=== PATIENT | male | born 1945 | race Caucasian/White ===

== ENCOUNTER 2016-06-01 00:48 | Emergency (ER) | payer MEDICARE, OTHER ==
[~2016-06-01] VITALS: Ht 175.3 cm; Wt 86.7 kg
[~2016-06-01 00:48] MED LIST: HYZA50TA2 PO; TOPR50TA PO
[2016-06-01] MEDS ORDERED: TOPR50TA PO (01:09)
[2016-06-01] MEDS ORDERED: ASPI325T PO (01:09)
[2016-06-01] MEDS ORDERED: HYZA50TA2 PO (01:09)
[2016-06-01 01:10] VITALS: BP 190/102; PULSE 73; RESP 16; TEMP 97.6; O2SAT 99
[2016-06-01 01:40] VITALS: BP 163/92
--- NOTE | 2016-06-01 01:42 | PD ---
HPI Chief Complaint: Abdominal Pain Time Seen by Provider: 01:29 Travel History International Travel<30 days: No Contact w/Intl Traveler<30days: No Traveled to known affect area: No History of Present Illness HPI Patient is a 70-year-old male that tonight around 15/08/14 felt bilateral muscle spasms in his abdomen. His muscles and the abdomen became hard as a rock but he had no nausea or vomiting. He had no abdominal distention. Gradually, after heating pads and relaxation his abdominal spasms quit. He had a similar episode a year ago which resolved spontaneously as well. He does not have a fever or abdominal pain now. PFSH Past Medical History Heart Rhythm Problems: No Cancer: Yes (PROSTATE) Cardiac Catheterization: No Cardiovascular Problems: Yes (HTN) High Cholesterol: No Congestive Heart Failure: No Diabetes: No Diminished Hearing: No Hypertension: Yes Kidney Stones: Yes Myocardial Infarction: No Radiation Therapy: Yes (FOR PROSTATE CANCER:40 TOTAL TREATMENTS: AGE 59 ) Tetanus Vaccination: > 5 Years Influenza Vaccination: No Past Surgical History Coronary Artery Bypass Graft: No Tonsillectomy: Yes Social History Alcohol Use: Yes ("MODERATELY") Tobacco Use: No (QUIT AGE 50) Substance Use: No Allergies-Medications (Allergen,Severity, Reaction): Coded Allergies: No Known Allergies (Verified , 06/01/16) Reported Meds & Prescriptions Reported Meds & Active Scripts Active Reported Aspirin 325 Mg Tab 325 Mg PO DAILY PRN Toprol XL (Metoprolol Succinate) 50 Mg Tab 50 Mg PO DAILY Hyzaar (Losartan-Hydrochlorothiazide) 50-12.5 Mg Tab 1 Tab PO DAILY Review of Systems Except as stated in HPI: all other systems reviewed are Neg Physical Exam Narrative GENERAL: Well-nourished, well-developed patient in no apparent distress. His vital signs show blood pressure 190/102 but otherwise normal. SKIN: Warm and dry. No skin rash is noted. HEAD: Normocephalic. EYES: No scleral icterus. No injection or drainage. NECK: Supple, trachea midline. No JVD or lymphadenopathy. CARDIOVASCULAR: Regular rate and rhythm without murmurs, gallops, or rubs. RESPIRATORY: Breath sounds equal bilaterally. No accessory muscle use. GASTROINTESTINAL: Abdomen soft, non-tender, nondistended. No guarding or rebound is present. No masses are felt in the abdomen. MUSCULOSKELETAL: No cyanosis, or edema. BACK: Nontender without obvious deformity. No CVA tenderness. Data Data Last Documented VS Vital Signs Date Time Temp Pulse Resp B/P Pulse Ox O2 Delivery O2 Flow Rate FiO2 06/01/16 01:40 163/92 06/01/16 01:10 97.6 73 16 99 [facility] Medical Decision Making Medical Screen Exam Complete: Yes Emergency Medical Condition: Yes Medical Record Reviewed: Yes Differential Diagnosis Small bowel obstructionunlikely, muscle spasm abdomen, black spider bite highly unlikely Narrative Course The patient had transient muscle spasm of his abdominal rectus muscles by history. He has no spasm now on his abdomen is soft and nontender. At this time I feel it is fruitless an expensive to order any testing at this time. His symptoms have completely resolved. Impression: Abdominal muscle spasmresolved Plan: I will prescribe the patient some Valium in case he has a recurrence of this muscle spasm. He should return to emergency department should this occur. Diagnosis Primary Impression: Spasm of abdominal muscles of left side Additional Instructions: Discussed this with your primary care physician. I prescribed some Valium in case this happens again to see if this helps the muscle spasm. Do not drink alcohol or drive on the Valium. Med/Other Pt SpecificInfo: Prescription(s) given Scripts Diazepam (Valium)5 Mg Tab5 Mg PO TID PRN (muscle spasm) #15 TAB Ref 0 Prov:Mao Sunshine MD 06/01/16 Disposition: 01 DISCHARGE HOME Condition: Stable Mao Sunshine MD Jun 01, 2016 01:42
[2016-06-01] MEDS ORDERED: DIAZ5 PO (01:54)
[2016-06-01] MEDS ORDERED: DIAZEPAM 5 MG TAB PO ONE (02:00)
== END 2016-06-01 02:05 | disposition home or self-care (01) ==
LOC: PHED 00:48
DX: M62.838 Other muscle spasm (principal); R10.9 Unspecified abdominal pain; I10 Essential (primary) hypertension; Z87.442 Personal history of urinary calculi
CPT/HCPCS: 99283

== ENCOUNTER 2017-04-05 06:03 | Inpatient (IN) | payer MEDICARE, OTHER ==
[2017-04-05] VITALS (8 sets, daily range): BP systolic 117–198; BP diastolic 60–105; PULSE 80–103; RESP 16–20; TEMP 96–98.6; O2SAT 95–100
[~2017-04-05] VITALS: Ht 175.3 cm; Wt 87.9 kg
[~2017-04-05 06:03] MED LIST changes: +ASPI-183 PO; +DIAZ5 PO
--- NOTE | 2017-04-05 06:42 | PD ---
HPI Chief Complaint: Abdominal Pain Time Seen by Provider: 06:23 Travel History International Travel<30 days: No Contact w/Intl Traveler<30days: No Traveled to known affect area: No History of Present Illness HPI The patient is a 71-year-old male that complains of bilateral abdominal pain, primarily in the periumbilical areas for one hour. He denies any fever, nausea , vomiting or diarrhea. He states he has been having hard bowel movements lately and had some bright red blood in his stool about an hour ago. The stool was otherwise normal. He states he had a similar episode a year ago which resolved, I saw him at that time. He denies any dysuria, frequency, urgency or flank pain. PFSH Past Medical History Heart Rhythm Problems: No Cancer: Yes (PROSTATE) Cardiac Catheterization: No Cardiovascular Problems: Yes (HTN) High Cholesterol: No Congestive Heart Failure: No Diabetes: No Diminished Hearing: No Hypertension: Yes Kidney Stones: Yes Myocardial Infarction: No Radiation Therapy: Yes (FOR PROSTATE CANCER:40 TOTAL TREATMENTS: AGE 59 ) Past Surgical History Coronary Artery Bypass Graft: No Tonsillectomy: Yes Social History Alcohol Use: Yes ("MODERATELY") Tobacco Use: No (QUIT AGE 50) Substance Use: No Allergies-Medications (Allergen,Severity, Reaction): Coded Allergies: No Known Allergies (Verified Adverse Reaction, Unknown, 04/05/17) Reported Meds & Prescriptions Reported Meds & Active Scripts Active Valium (Diazepam) 5 Mg Tab 5 Mg PO TID PRN Reported Aspirin 325 Mg Tab 325 Mg PO DAILY PRN Toprol XL (Metoprolol Succinate) 50 Mg Tab 50 Mg PO DAILY Hyzaar (Losartan-Hydrochlorothiazide) 50-12.5 Mg Tab 1 Tab PO DAILY Review of Systems Except as stated in HPI: all other systems reviewed are Neg Physical Exam Narrative GENERAL: The patient is alert, oriented 3 in moderate apparent distress with his bilateral periumbilical abdominal discomfort. His vital signs show pulse 103 but are otherwise normal. SKIN: Focused skin assessment warm/dry. HEAD: Atraumatic. Normocephalic. EYES: Pupils equal and round. No scleral icterus. No injection or drainage. ENT: No nasal bleeding or discharge. Mucous membranes pink and moist. NECK: Trachea midline. No JVD. CARDIOVASCULAR: Regular rate and rhythm. No murmur appreciated. RESPIRATORY: No accessory muscle use. Clear to auscultation. Breath sounds equal bilaterally. GASTROINTESTINAL: Abdomen soft, with tenderness to direct palpation bilaterally next to the umbilicus, minimally distended. Hepatic and splenic margins not palpable. No guarding or rebound is present. MUSCULOSKELETAL: No obvious deformities. No clubbing. No cyanosis. No edema. NEUROLOGICAL: Awake and alert. No obvious cranial nerve deficits. Motor grossly within normal limits. Normal speech. PSYCHIATRIC: Appropriate mood and affect; insight and judgment normal. RECTAL EXAM: No masses or tenderness, stool is brown and trace guaiac positive. No impactions are noted. Data Data Last Documented VS Vital Signs Date Time Temp Pulse Resp B/P (MAP) Pulse Ox O2 Delivery O2 Flow Rate FiO2 04/05/17 06:05 97.7 103 18 117/60 (79) 98 Orders Orders Complete Blood Count With Diff (04/05/17 06:43) Comprehensive Metabolic Panel (04/05/17 06:43) Lipase (04/05/17 06:43) Urinalysis - C+S If Indicated (04/05/17 06:43) Ct Abd/Pel W Iv Contrast(Rout) (04/05/17 06:43) Iv Access Insert/Monitor (04/05/17 06:43) Ecg Monitoring (04/05/17 06:43) Oximetry (04/05/17 06:43) Sodium Chloride 0.9% Flush (Ns Flush) (04/05/17 06:45) Sodium Chlor 0.9% 1000 Ml Inj (Ns 1000 M (04/05/17 06:45) Labs Laboratory Tests Test 04/05/17 06:49 04/05/17 06:55 White Blood Count 10.8 TH/MM3 Red Blood Count 5.59 MIL/MM3 Hemoglobin 15.7 GM/DL Hematocrit 47.0 % Mean Corpuscular Volume 84.2 FL Mean Corpuscular Hemoglobin 28.1 PG Mean Corpuscular Hemoglobin Concent 33.4 % Red Cell Distribution Width 13.6 % Platelet Count 182 TH/MM3 Mean Platelet Volume 6.8 FL Neutrophils (%) (Auto) 68.4 % Lymphocytes (%) (Auto) 24.1 % Monocytes (%) (Auto) 5.4 % Eosinophils (%) (Auto) 1.7 % Basophils (%) (Auto) 0.4 % Neutrophils # (Auto) 7.4 TH/MM3 Lymphocytes # (Auto) 2.6 TH/MM3 Monocytes # (Auto) 0.6 TH/MM3 Eosinophils # (Auto) 0.2 TH/MM3 Basophils # (Auto) 0.0 TH/MM3 CBC Comment DIFF FINAL Differential Comment MDM Medical Decision Making Medical Screen Exam Complete: Yes Emergency Medical Condition: Yes Medical Record Reviewed: Yes Differential Diagnosis Muscle spasms, small bowel obstruction-unlikely, abdominal pain unknown etiology , colitis, gastritis, electrolyte disorder Narrative Course It is now 0711 and the patient is transferred to Dr. Smith. Mao Sunshine MD Apr 05, 2017 06:42
[2017-04-05] MEDS ORDERED: SODIUM CHLOR 0.9% 1000 ML INJ 1,000 ML IV SCH (06:45)
[2017-04-05 07:04] LABS: AUTOMATED NEUTROPHIL # 7.4 TH/MM3 (1.8-7.7); BASOPHIL % 0.4 % (0.0-2.0); EOSINOPHIL # 0.2 TH/MM3 (0-0.4); EOSINOPHIL % 1.7 % (0.0-4.0); HEMO FLAGS DIFF FINAL; LYMPH % 24.1 % (9.0-44.0); LYMPHOCYTE # 2.6 TH/MM3 (1.0-4.8); MEAN CELL VOLUME 84.2 FL (80.0-100.0); MEAN CORPUSCULAR HEMOGLOBIN 28.1 PG (27.0-34.0); MEAN CORPUSCULAR HGB CONC 33.4 % (32.0-36.0); MONO % 5.4 % (0.0-8.0); NEUT % 68.4 % (16.0-70.0); PLATELET COUNT 182 TH/MM3 (150-450); RED BLOOD COUNT 5.59 MIL/MM3 (4.50-5.90); RED CELL DISTRIBUTION WIDTH 13.6 % (11.6-17.2); WHITE BLOOD COUNT 10.8 TH/MM3 (4.0-11.0)
[2017-04-05] MEDS: SODIUM CHLORIDE 0.9% FLUSH 10 ML FLUSH IV FLUSH PRN ×3 (07:10→22:04)
[2017-04-05 07:12] LABS: CHLORIDE 104 MEQ/L (98-107); POTASSIUM 3.2 MEQ/L (3.5-5.1); SODIUM (NA) 140 MEQ/L (136-145)
[2017-04-05 07:16] LABS: ANION GAP 7 MEQ/L (5-15); BICARBONATE 29.1 MEQ/L (21.0-32.0); BLOOD UREA NITROGEN 19 MG/DL (7-18)
[2017-04-05 07:18] LABS: ALT (GPT) 47 U/L (12-78); AST (GOT) 60 U/L (15-37)
[2017-04-05 07:19] LABS: BLOOD, URINE SMALL (NEG); GLUCOSE,URINE NEG (NEG); KETONE, URINE NEG (NEG); NITRITE,URINE NEG (NEG)
[2017-04-05 07:19] LABS: GLOMERULAR FILTRATION RATE 54 ML/MIN (>89)
[2017-04-05 07:20] LABS: TOTAL BILIRUBIN ADULT 2.5 MG/DL (0.2-1.0)
[2017-04-05 07:21] LABS: ALKALINE PHOSPHATASE 69 U/L (45-117)
[2017-04-05 07:25] LABS: METHOD OF COLLECTION CLEAN CATCH; URINE COLOR YELLOW (YELLW/STRAW); WBC, URINE 0-2 /hpf (0-5)
[2017-04-05 07:26] LABS: COMMENT (UR) CULT NOT INDICATED; CULTURE IF INDICATED CULT NOT INDICATED; SQUAMOUS EPITHELIAL CELL URINE 0-5 /hpf (0-5)
[2017-04-05] MEDS ORDERED: IOHEXOL 350 MG/ML 10 ML VIAL (for RAD DIAG) IVCONTRAST ONE (07:45)
--- NOTE | 2017-04-05 08:08 | RADRPT ---
EXAM DATE/TIME: 04/05/2017 07:40 [facility] COMPARISON: No previous studies available for comparison. INDICATIONS : Periumbilical pain. Constipation. IV CONTRAST: 85 cc Omnipaque 350 (iohexol) IV ORAL CONTRAST: No oral contrast ingested. RADIATION DOSE: 14.94 CTDIvol (mGy) MEDICAL HISTORY : Carcinoma, prostate. Renal calculi. Hypertension. SURGICAL HISTORY : None. ENCOUNTER: Initial ACUITY: 1 day PAIN SCALE: 6/10 LOCATION: Periumbilical. TECHNIQUE: Volumetric scanning of the abdomen and pelvis was performed. Using automated exposure control and ad justment of the mA and/or kV according to patient size, radiation dose was kept as low as reasonably achievable to obtain optimal diagnostic quality images. DICOM format image data is available electro nically for review and comparison. FINDINGS: LOWER LUNGS: There is minimal atelectasis at the lung bases. LIVER: Homogeneous density without lesion. There is no dilation of the biliary tree. No definite gallstone s. There is mild gallbladder wall edema. SPLEEN: Mildly enlarged measuring 14.4 cm in length. There is a 2.2 cm enhancing lesion within the central sp karla. PANCREAS: There are peripancreatic inflammatory changes with mild fluid/edema. Pancreas demonstrates normal enh ancement without necrosis. No duct dilatation is present. No solid mass is seen. No organized peripan creatic fluid collections or pancreatitis associated complications are identified. 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 There is a focal scar at the left upper pole where there is a focal calcification measuring 12 mm associated with a cystic lesion measuring approximately 18 m m. This could represent a dilated calyx or cyst. In the distal left ureter a few centimeters proximal to the ureterovesical junction there is a 7 x 5 mm ovoid stone. Directly proximal to the UVJ is a 2 mm stone. ADRENAL GLANDS: Within normal limits. VASCULAR: There is no aortic aneurysm. There is moderate severity atherosclerotic disease. Splenic vein is clark nt. BOWEL/MESENTERY: The stomach, small bowel, and colon demonstrate no acute abnormality. There is no free intraperitone al air. There is mild sigmoid diverticulosis. ABDOMINAL WALL: Within normal limits. RETROPERITONEUM: There is no lymphadenopathy. BLADDER: No wall thickening or mass. REPRODUCTIVE: Fiducial markers are present within the prostate gland. INGUINAL: There is no lymphadenopathy. There are bilateral fat containing angle hernias. MUSCULOSKELETAL: There are degenerative changes of the lumbar spine. No acute osseous abnormality is identified. CONCLUSION: 1. Peripancreatic inflammation diagnostic of acute pancreatitis. There is no pancreatic necrosis or a cute pancreatitis associated complications. Additionally, no specific cause identified. There is mild gallbladder wall edema but no definite gallstones are present and there is no bile duct dilatation. 2. 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 The smaller stone measures 2 mm and the larger measures 7 x 5 mm. 3. Mild splenomegaly with enhancing lesion measuring 2.2 cm.. This lesion has nonspecific imaging fea tures. Suggest correlating with prior imaging studies that could confirm longer-term stability. If no ne are available consider elective outpatient MRI with and without intravenous contrast to potentiall y offer additional characterization. Aly Whiting MD on April 05, 2017 at 7:51 Board Certified Radiologist. This report was verified electronically.
[2017-04-05] MEDS ORDERED: SODIUM CHLOR 0.45% 1000 ML INJ 1,000 ML IV SCH (09:18)
--- NOTE | 2017-04-05 09:20 | PD ---
Physical Exam Date Seen by Provider: Apr 05, 2017 Time Seen by Provider: 07:00 Narrative Patient initially seen by Dr. Sunshine, signed out to me at 7 AM, awaiting workup. Here with periumbilical abdominal pains which is tender to palpation. Laboratory Tests Test 04/05/17 06:49 04/05/17 06:55 Urine Protein 30 mg/dL (NEG-TRACE) Urine Occult Blood SMALL (NEG) Urine RBC 4-9 /hpf (0-3) Mean Platelet Volume 6.8 FL (7.0-11.0) Blood Urea Nitrogen 19 MG/DL (7-18) Random Glucose 176 MG/DL (74-106) Aspartate Amino Transf (AST/SGOT) 60 U/L (15-37) Total Bilirubin 2.5 MG/DL (0.2-1.0) Potassium Level 3.2 MEQ/L (3.5-5.1) Estimat Glomerular Filtration Rate 54 ML/MIN (>89) Lipase GREATER THAN 90001 U/L Last 24 hours Impressions Abdomen/Pelvis CT 04/05/17 0643 Signed Impressions: Service Date/Time: Wednesday, April 05, 2017 07:40 - CONCLUSION: 1. Peripancreatic inflammation diagnostic of acute pancreatitis. There is no pancreatic necrosis or acute pancreatitis associated complications. Additionally, no specific cause identified. There is mild gallbladder wall edema but no definite gallstones are present and there is no bile duct dilatation. 2. 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 The smaller stone measures 2 mm and the larger measures 7 x 5 mm. 3. Mild splenomegaly with enhancing lesion measuring 2.2 cm.. This lesion has nonspecific imaging features. Suggest correlating with prior imaging studies that could confirm longer-term stability. If none are available consider elective outpatient MRI with and without intravenous contrast to potentially offer additional characterization. Aly Whiting MD Lab work shows significant lipase elevation indicative of pancreatitis. CAT scan is showing signs of pancreatitis as well as mild gallbladder wall edema but no signs of gallstones or obvious ductal dilatation. At this point, patient was reevaluated and he appears fairly comfortable. He has had no nausea or vomiting. He is quite tender in the epigastrium and left upper quadrant as well. He is received IV fluids and pain medications in the ER and my plan would be to admit him for further treatment. Case was discussed with Dr. Palm for admission. Data Data Last Documented VS Vital Signs Date Time Temp Pulse Resp B/P (MAP) Pulse Ox O2 Delivery O2 Flow Rate FiO2 04/05/17 08:15 87 16 160/78 (105) 98 Room Air 04/05/17 06:05 97.7 Orders Orders Complete Blood Count With Diff (04/05/17 06:43) Comprehensive Metabolic Panel (04/05/17 06:43) Lipase (04/05/17 06:43) Urinalysis - C+S If Indicated (04/05/17 06:43) Ct Abd/Pel W Iv Contrast(Rout) (04/05/17 06:43) Iv Access Insert/Monitor (04/05/17 06:43) Ecg Monitoring (04/05/17 06:43) Oximetry (04/05/17 06:43) Sodium Chloride 0.9% Flush (Ns Flush) (04/05/17 06:45) Sodium Chlor 0.9% 1000 Ml Inj (Ns 1000 M (04/05/17 06:45) Iohexol 350 Inj (Omnipaque 350 Inj) (04/05/17 07:45) Admit Order (Ed Use Only) (04/05/17 09:17) Labs Laboratory Tests Test 04/05/17 06:49 04/05/17 06:55 Urine Collection Type CLEAN CATCH Urine Color YELLOW Urine Turbidity CLEAR Urine pH 6.0 Urine Specific Allen 1.012 Urine Protein 30 mg/dL Urine Glucose (UA) NEG mg/dL Urine Ketones NEG mg/dL Urine Occult Blood SMALL Urine Nitrite NEG Urine Bilirubin NEG Urine Leukocyte Esterase NEG Urine RBC 4-9 /hpf Urine WBC 0-2 /hpf Urine Squamous Epithelial Cells 0-5 /hpf Microscopic Urinalysis Comment CULT NOT INDICATED Urine Collection Time 06:49 White Blood Count 10.8 TH/MM3 Red Blood Count 5.59 MIL/MM3 Hemoglobin 15.7 GM/DL Hematocrit 47.0 % Mean Corpuscular Volume 84.2 FL Mean Corpuscular Hemoglobin 28.1 PG Mean Corpuscular Hemoglobin Concent 33.4 % Red Cell Distribution Width 13.6 % Platelet Count 182 TH/MM3 Mean Platelet Volume 6.8 FL Neutrophils (%) (Auto) 68.4 % Lymphocytes (%) (Auto) 24.1 % Monocytes (%) (Auto) 5.4 % Eosinophils (%) (Auto) 1.7 % Basophils (%) (Auto) 0.4 % Neutrophils # (Auto) 7.4 TH/MM3 Lymphocytes # (Auto) 2.6 TH/MM3 Monocytes # (Auto) 0.6 TH/MM3 Eosinophils # (Auto) 0.2 TH/MM3 Basophils # (Auto) 0.0 TH/MM3 CBC Comment DIFF FINAL Differential Comment Blood Urea Nitrogen 19 MG/DL Creatinine 1.30 MG/DL Random Glucose 176 MG/DL Total Protein 7.0 GM/DL Albumin 3.7 GM/DL Calcium Level 8.8 MG/DL Alkaline Phosphatase 69 U/L Aspartate Amino Transf (AST/SGOT) 60 U/L Alanine Aminotransferase (ALT/SGPT) 47 U/L Total Bilirubin 2.5 MG/DL Sodium Level 140 MEQ/L Potassium Level 3.2 MEQ/L Chloride Level 104 MEQ/L Carbon Dioxide Level 29.1 MEQ/L Anion Gap 7 MEQ/L Estimat Glomerular Filtration Rate 54 ML/MIN Lipase GREATER THAN 63797 U/L [facility] Medical Record Reviewed: Yes Supervised Visit with LEW: No Diagnosis Primary Impression: Acute pancreatitis Admitting Information Admitting Physician Requests: Admit Vanna Phelan MD Apr 05, 2017 09:20
[2017-04-05] MEDS ORDERED: SODIUM CHLOR 0.9% 1000 ML INJ 1,000 ML IV ONE (09:30)
[2017-04-05] MEDS ORDERED: GLYCERIN ADULT 2 GM SUPP RECTAL ONE (11:00)
--- NOTE | 2017-04-05 11:03 | HHI.HP ---
HPI Service [facility] Primary Care Physician Anderson Stout M.D. Admission Diagnosis acute pancreatitis Diagnoses: Chief Complaint: Abdominal pain Travel History International Travel<30 Days: No Contact w/Intl Traveler <30 Da: No Traveled to Known Affected Are: No History of Present Illness 71-year-old white male being admitted for severe pancreatitis. Patient was in his usual state of health until early this morning around 5 AM when he woke up in abdominal pain. The pain was cramping in nature and at worst was an 8/10 in intensity and was diffusely over his abdomen. He felt that this was possibly related to needing to void, but after having a bowel movement pain did not resolve and decided to proceed to the emergency room. He denies any nausea vomiting or diarrhea. Denies any alleviating or worsening factors of the abdominal pain. No fevers or chills. He reports having some blood noted on wiping but no bright red blood seen in the toilet on his last 2 bowel movements prior to admission; he does report that his last 2 bowel movements had relatively hard stool in comparison to normal stool that he usually has otherwise. Says he had occult stool cards done just about 2 months ago which were negative. Review of Systems Except as stated in HPI: all other systems reviewed are Neg Past Family Social History Past Medical History Prostate cancer - underwent 41 rounds of radiation treatment with no surgical intervention Hypertension Allergies: Coded Allergies: No Known Allergies (Verified Adverse Reaction, Unknown, 04/05/17) Family History Father with lung cancer, brother with lung cancer Social History Ex-smoker, has not smoked for over 20 years Says he drinks about 1-2 beers about 1 day a week when he plays pool Physical Exam Vital Signs Vital Signs Date Time Temp Pulse Resp B/P (MAP) Pulse Ox O2 Delivery O2 Flow Rate FiO2 04/05/17 10:02 83 16 158/80 (106) 04/05/17 10:01 04/05/17 09:15 80 16 166/77 (106) 04/05/17 08:15 87 16 160/78 (105) 98 Room Air 11/8/17 08:00 16 04/05/17 07:23 16 98 Room Air 04/05/17 06:05 97.7 103 18 117/60 (79) 98 Physical Exam VS: Afebrile GENERAL: Middle-aged white male, well-nourished, no acute distress SKIN: Warm and dry. EYES: No scleral icterus. No injection or drainage. ENT: No nasal bleeding or discharge. Mucous membranes pink and moist. CARDIOVASCULAR: Regular rate and rhythm. no murmurs RESPIRATORY: No accessory muscle use. Clear to auscultation. Breath sounds equal bilaterally. GASTROINTESTINAL: Abdomen soft, mild diffuse tenderness to palpation, no focal masses palpated, no rebound, no guarding Extremities: No clubbing, cyanosis, or edema. No obvious deformities. MUSCULOSKELETAL: Extremities without clubbing, cyanosis, or edema. No obvious deformities. grossly intact ROM with 5/5 strength in upper and lower extremities proximally NEUROLOGICAL: Awake and alert. No obvious cranial nerve deficits. No facial droop nor slurred speech noted. PSYCHIATRIC: Appropriate mood and affect; insight and judgment normal. Laboratory Laboratory Tests Test 04/05/17 06:49 04/05/17 06:55 Urine Collection Type CLEAN CATCH Urine Color YELLOW Urine Turbidity CLEAR Urine pH 6.0 Urine Specific [place] 1.012 Urine Protein 30 Urine Glucose (UA) NEG Urine Ketones NEG Urine Occult Blood SMALL Urine Nitrite NEG Urine Bilirubin NEG Urine Leukocyte Esterase NEG Urine RBC 4-9 Urine WBC 0-2 Urine Squamous Epithelial Cells 0-5 Microscopic Urinalysis Comment CULT NOT INDICATED Urine Collection Time 06:49 White Blood Count 10.8 Red Blood Count 5.59 Hemoglobin 15.7 Hematocrit 47.0 Mean Corpuscular Volume 84.2 Mean Corpuscular Hemoglobin 28.1 Mean Corpuscular Hemoglobin Concent 33.4 Red Cell Distribution Width 13.6 Platelet Count 182 Mean Platelet Volume 6.8 Neutrophils (%) (Auto) 68.4 Lymphocytes (%) (Auto) 24.1 Monocytes (%) (Auto) 5.4 Eosinophils (%) (Auto) 1.7 Basophils (%) (Auto) 0.4 Neutrophils # (Auto) 7.4 Lymphocytes # (Auto) 2.6 Monocytes # (Auto) 0.6 Eosinophils # (Auto) 0.2 Basophils # (Auto) 0.0 CBC Comment DIFF FINAL Differential Comment Blood Urea Nitrogen 19 Creatinine 1.30 Random Glucose 176 Total Protein 7.0 Albumin 3.7 Calcium Level 8.8 Alkaline Phosphatase 69 Aspartate Amino Transf (AST/SGOT) 60 Alanine Aminotransferase (ALT/SGPT) 47 Total Bilirubin 2.5 Sodium Level 140 Potassium Level 3.2 Chloride Level 104 Carbon Dioxide Level 29.1 Anion Gap 7 Estimat Glomerular Filtration Rate 54 Lipase GREATER THAN 08860 Result Diagram: 04/05/1765404/05/17654 Caprini VTE Risk Assessment Caprini VTE Risk Assessment: Mod/High Risk (score >= 2) Caprini Risk Assessment Model Point Value = 1 Point Value = 2 Point Value = 3 Point Value = 5 Age 41-60 Minor surgery BMI > 25 kg/m2 Swollen legs Varicose veins or History of unexplained or recurrent spontaneous Oral contraceptives or hormone replacement Sepsis (< 1 month) Serious lung disease, including pneumonia (< 1 month) Abnormal pulmonary function Acute myocardial infarction Congestive heart failure (< 1 month) History of inflammatory bowel disease Medical patient at bed rest Age 61-74 Arthroscopic surgery Major open surgery (> 45 min) Laparoscopic surgery (> 45 min) Malignancy Confined to bed (> 72 hours) Immobilizing plaster cast Central venous access Age >= 75 History of VTE Family history of VTE Factor V Leiden Prothrombin [id number] Lupus anticoagulant Anticardiolipin antibodies Elevated serum homocysteine Heparin-induced thrombocytopenia Other congenital or acquired thrombophilia Stroke (< 1 month) Elective arthroplasty Hip, pelvis, or leg fracture Acute spinal cord injury (< 1 month) Prophylaxis Regimen Total Risk Factor Score Risk Level Prophylaxis Regimen 0-1 Low Early ambulation 2 Moderate Order ONE of the following: *Sequential Compression Device (SCD) *Heparin 5000 units SQ BID 3-4 Higher Order ONE of the following medications: *Heparin 5000 units SQ TID *Enoxaparin/Lovenox 40 mg SQ daily (WT < 150 kg, CrCl > 30 mL/min) *Enoxaparin/Lovenox 30 mg SQ daily (WT < 150 kg, CrCl > 10-29 mL/min) *Enoxaparin/Lovenox 30 mg SQ BID (WT < 150 kg, CrCl > 30 mL/min) AND/OR *Sequential Compression Device (SCD) 5 or more Highest Order ONE of the following medications: *Heparin 5000 units SQ TID (Preferred with Epidurals) *Enoxaparin/Lovenox 40 mg SQ daily (WT < 150 kg, CrCl > 30 mL/min) *Enoxaparin/Lovenox 30 mg SQ daily (WT < 150 kg, CrCl > 10-29 mL/min) *Enoxaparin/Lovenox 30 mg SQ BID (WT < 150 kg, CrCl > 30 mL/min) AND *Sequential Compression Device (SCD) Assessment and Plan Assessment and Plan Abdominal pain - Likely secondary to pancreatitis Severe pancreatitis - Lipase at least at 30,000, pancreatitis evident on CT scan - - Given that the patient does not look as sick as his labs with a very high lipase and elevated bilirubin, I suspect he might have choledocholithiasis - Ordering gallbladder ultrasound with focus on biliary tree - Giving another normal saline bolus, followed by aggressive hydration - Repeat CMP in a.m. as well as lipase - Clear liquids as tolerated - Pain medications as needed Possible choledocholithiasis - f/u US results as above constipation - I independent only reviewed the abdominal CT film and I see mild to moderate constipation. Starting stool softeners and giving and glycerin suppository. - I suspect his blood on wiping is more so from hard stool and not from a jelena GI bleed, we'll monitor hemoglobin but I do not feel that his case warrants absolute contraindication for pharmacological anti-coagulation HTN - continue home meds DVT prophylaxis lovenox Physician Certification 2 Midnight Certification Type: Admission for Inpatient Services Order for Inpatient Services The services are ordered in accordance with Medicare regulations or non- Medicare payer requirements, as applicable. In the case of services not specified as inpatient-only, they are appropriately provided as inpatient services in accordance with the 2-midnight benchmark. Estimated LOS (days): 2 2 days is the estimated time the patient will need to remain in the hospital, assuming treatment plan goals are met and no additional complications. Post-Hospital Plan: Home Elder Palm MD Apr 05, 2017 11:03
--- NOTE | 2017-04-05 11:13 | RADRPT ---
EXAM DATE/TIME: 04/05/2017 10:08 [facility] COMPARISON: CT ABDOMEN & PELVIS W CONTRAST, April 05, 2017, 7:40. INDICATIONS : Right upper quadrant pain. MEDICAL HISTORY : Hypertension. Renal calculi. Carcinoma, prostate. SURGICAL HISTORY : Tonsillectomy. Radiation therapy. ENCOUNTER: Initial ACUITY: 1 day PAIN SCORE: 6/10 LOCATION: Right upper quadrant MEASUREMENTS: LIVER: 14.1 cm length COMMON DUCT: 7 mm RIGHT KIDNEY: 8.9 x 3.9 x 4.9 cm FINDINGS: LIVER: The left lobe of liver is incompletely imaged. The left portions of the liver are unremarkable withou t evidence for intrahepatic ductal dilatation. COMMON DUCT: No intraluminal mass or stone visualized. GALLBLADDER: Gallbladder is mildly distended. There is gallbladder thickening with trace pericholecystic fluid. Th ere is a 4 x 4 x 6 mm adherent echogenic structure near the gallbladder neck. PANCREAS: Obscured by overlying bowel gas. 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 CONCLUSION: 1. Mild gallbladder wall thickening and trace pericholecystic fluid with small nonobstructing 6 mm ad herent echogenic structure near the gallbladder neck likely reflecting adherent stone or polyp. These findings are nonspecific in this patient with acute pancreatitis although acute cholecystitis cannot be excluded particularly given the pericholecystic fluid. Consider HIDA scan to evaluate for cystic duct patency. 1. Naveed Cordoba MD on April 05, 2017 at 10:45 Board Certified Radiologist. This report was verified electronically.
[2017-04-05] MEDS ORDERED: LISI20TA3 PO (11:44)
[2017-04-05] MEDS ORDERED: NON-FORMULARY DRUG (Lisinopril-Hctz 1 TAB) PO SCH (12:00)
[2017-04-05] MEDS: POLYETHYLENE GLYCOL 17 GM PKG PO SCH (12:10)
[2017-04-05] MEDS: METOPROLOL SUCCINATE 50 MG EXTENDED RELEASE TAB PO SCH (12:11)
[2017-04-05] MEDS: ACETAMINOPHEN/HYDROcodone 325 MG/5 MG TAB PO PRN (12:12)
[2017-04-05] MEDS: LISINOPRIL 20 MG TAB PO SCH (12:22)
[2017-04-05] MEDS: HYDROCHLOROTHIAZIDE 25 MG TAB PO SCH (12:22)
[2017-04-05] MEDS: ENOXAPARIN SODIUM 30 MG/0.3 ML SYRINGE SQ SCH (12:23)
[2017-04-05] MEDS: SODIUM CHLOR 0.9% 1000 ML INJ 1,000 ML IV SCH ×2 (12:30→19:47)
[2017-04-05] MEDS: MORPHINE SULFATE 4 MG/ML INJ IV PUSH PRN ×3 (15:42→22:04)
[2017-04-05 16:53] LABS: TOTAL BILIRUBIN ADULT 2.5 MG/DL (0.2-1.0)
[2017-04-05] MEDS: ENALAPRILAT 1.25 MG/ML VIAL IV PUSH PRN (17:47)
--- NOTE | 2017-04-05 17:48 | PD.CONS ---
cc: Jaron Dawson MD [facility] Service General Surgery Consult Requested By Dr. Palm Reason for Consult Evaluate for possible choledocholithiasis Primary Care Physician Anderson Stout M.D. History of Present Illness This is a 71-year-old male with a past medical history of prostate cancer and hypertension. The patient awoke this morning at 5 AM with sudden acute abdominal pain. His last meal was quesadillas last night with his who also had the same thing. The patient denies nausea, vomiting or diarrhea. He does report that he has been constipated. He had a large bowel movement this morning which did have some jelena red blood in it. A CT abdomen and pelvis was obtained which showed some gallbladder wall thickening and concern for cholelithiasis. An ultrasound of the gallbladder was obtained which showed some gallstones and mild gallbladder wall thickening with trace pericholecystic fluid. The patient's total bilirubin on admission is 2.5. The patient's lipase is 30,000. There are repeat labs currently pending at this moment. A General Surgery consultation is requested. Review of Systems Constitutional: DENIES: Fatigue, Change in appetite Endocrine: DENIES: Polydipsia, Polyuria, Polyphagia Eyes: DENIES: Diplopia Ears, nose, mouth, throat: DENIES: Hearing loss Cardiovascular: DENIES: Chest pain Gastrointestinal: COMPLAINS OF: Abdominal pain, Constipation, DENIES: Diarrhea , Nausea, Vomiting Genitourinary: DENIES: Urinary frequency, Urinary incontinence Musculoskeletal: DENIES: Joint pain Integumentary: DENIES: Abnormal pigmentation Hematologic/lymphatic: DENIES: Bruising Immunologic/allergic: DENIES: Eczema Neurologic: DENIES: Headache, Localized weakness Psychiatric: DENIES: Mood changes, Depression, Hallucinations Past Family Social History Past Medical History Prostate cancer Hypertension Past Surgical History Tonsillectomy Reported Medications Valium Lisinopril Hydrochlorothiazide Allergies: Coded Allergies: No Known Allergies (Verified Adverse Reaction, Unknown, 04/05/17) Active Ordered Medications Current Medications Medications (Trade) Dose Ordered Sig/Lucian Route Start Time Stop Time Status Last Admin (NS Flush) 2 ml UNSCH PRN IV FLUSH 04/05/17 06:45 04/05/17 09:55 Sodium Chloride 1,000 ml @ 125 mls/hr Q8H IV 04/05/17 10:30 04/05/17 12:30 (Lovenox Inj) 30 mg Q24H SQ 04/05/17 12:00 04/05/17 12:23 (Miralax) 17 gm DAILY PO 04/05/17 11:00 04/05/17 12:10 ([place] 5-325 Mg) 1 tab Q6H PRN PO 04/05/17 11:15 04/05/17 12:12 (Toprol Xl) 50 mg DAILY PO 04/05/17 12:00 04/05/17 12:11 (Prinivil) 20 mg DAILY PO 04/05/17 12:07 04/05/17 12:22 (Hydrodiuril) 25 mg DAILY PO 04/05/17 12:07 04/05/17 12:22 (Morphine Inj) 4 mg Q3H PRN IV PUSH 04/05/17 15:00 04/05/17 15:42 (Vasotec Inj) 1.25 mg Q8H PRN IV PUSH 04/05/17 17:00 (Valium) 5 mg TID PRN PO 04/05/17 17:00 Family History Father and brother with lung cancer Social History Denies tobacco use Minimal EtOH use; socially; not daily Denies illicit drug use Physical Exam Vital Signs Vital Signs Date Time Temp Pulse Resp B/P (MAP) Pulse Ox O2 Delivery O2 Flow Rate FiO2 04/05/17 15:47 18 04/05/17 15:10 96.0 83 20 194/105 (134) 97 04/05/17 13:31 18 04/05/17 11:30 96.4 91 20 189/92 (124) 100 04/05/17 10:02 83 16 158/80 (106) 04/05/17 10:01 04/05/17 09:15 80 16 166/77 (106) 04/05/17 08:15 87 16 160/78 (105) 98 Room Air 04/05/17 08:00 16 04/05/17 07:23 16 98 Room Air 04/05/17 06:05 97.7 103 18 117/60 (79) 98 Physical Exam GENERAL: Pleasant 71-year-old male resting in bed in no acute distress. SKIN: Warm and dry. HEAD: Atraumatic. Normocephalic. EYES: Pupils equal and round. No scleral icterus. No injection or drainage. ENT: No nasal bleeding or discharge. Mucous membranes pink and moist. NECK: Trachea midline. CARDIOVASCULAR: Regular rate and rhythm. RESPIRATORY: No accessory muscle use. Clear to auscultation. Breath sounds equal bilaterally. GASTROINTESTINAL: Abdomen soft, obese abdomen; no visible scars on abdomen; both right upper quadrant and left upper quadrant tenderness with palpation. MUSCULOSKELETAL: Extremities without clubbing, cyanosis, or edema. No obvious deformities. NEUROLOGICAL: Awake and alert. No obvious cranial nerve deficits. Motor grossly within normal limits. Five out of 5 muscle strength in the arms and legs. Normal speech. PSYCHIATRIC: Appropriate mood and affect; insight and judgment normal. Laboratory Laboratory Tests Test 04/05/17 06:49 04/05/17 06:55 04/05/17 16:24 Urine Collection Type CLEAN CATCH Urine Color YELLOW Urine Turbidity CLEAR Urine pH 6.0 Urine Specific [place] 1.012 Urine Protein 30 Urine Glucose (UA) NEG Urine Ketones NEG Urine Occult Blood SMALL Urine Nitrite NEG Urine Bilirubin NEG Urine Leukocyte Esterase NEG Urine RBC 4-9 Urine WBC 0-2 Urine Squamous Epithelial Cells 0-5 Microscopic Urinalysis Comment CULT NOT INDICATED Urine Collection Time 06:49 White Blood Count 10.8 Red Blood Count 5.59 Hemoglobin 15.7 Hematocrit 47.0 Mean Corpuscular Volume 84.2 Mean Corpuscular Hemoglobin 28.1 Mean Corpuscular Hemoglobin Concent 33.4 Red Cell Distribution Width 13.6 Platelet Count 182 Mean Platelet Volume 6.8 Neutrophils (%) (Auto) 68.4 Lymphocytes (%) (Auto) 24.1 Monocytes (%) (Auto) 5.4 Eosinophils (%) (Auto) 1.7 Basophils (%) (Auto) 0.4 Neutrophils # (Auto) 7.4 Lymphocytes # (Auto) 2.6 Monocytes # (Auto) 0.6 Eosinophils # (Auto) 0.2 Basophils # (Auto) 0.0 CBC Comment DIFF FINAL Differential Comment Blood Urea Nitrogen 19 Creatinine 1.30 Random Glucose 176 Total Protein 7.0 Albumin 3.7 Calcium Level 8.8 Alkaline Phosphatase 69 Aspartate Amino Transf (AST/SGOT) 60 Alanine Aminotransferase (ALT/SGPT) 47 Total Bilirubin 2.5 2.5 Sodium Level 140 Potassium Level 3.2 Chloride Level 104 Carbon Dioxide Level 29.1 Anion Gap 7 Estimat Glomerular Filtration Rate 54 Lipase GREATER THAN 35329 97114 Direct Bilirubin 0.8 Result Diagram: 04/05/1755 04/05/17 0655 Imaging Last 48 hours Impressions Abdomen/Pelvis CT 04/05/17 0643 Signed Impressions: Service Date/Time: Wednesday, April 05, 2017 07:40 - CONCLUSION: 1. Peripancreatic inflammation diagnostic of acute pancreatitis. There is no pancreatic necrosis or acute pancreatitis associated complications. Additionally, no specific cause identified. There is mild gallbladder wall edema but no definite gallstones are present and there is no bile duct dilatation. 2. 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 The smaller stone measures 2 mm and the larger measures 7 x 5 mm. 3. Mild splenomegaly with enhancing lesion measuring 2.2 cm.. This lesion has nonspecific imaging features. Suggest correlating with prior imaging studies that could confirm longer-term stability. If none are available consider elective outpatient MRI with and without intravenous contrast to potentially offer additional characterization. Aly Whiting MD Gall Bladder Ultrasound 04/05/17 0000 Signed Impressions: Service Date/Time: Wednesday, April 05, 2017 10:08 - CONCLUSION: 1. Mild gallbladder wall thickening and trace pericholecystic fluid with small nonobstructing 6 mm adherent echogenic structure near the gallbladder neck likely reflecting adherent stone or polyp. These findings are nonspecific in this patient with acute pancreatitis although acute cholecystitis cannot be excluded particularly given the pericholecystic fluid. Consider HIDA scan to evaluate for cystic duct patency. 1. Naveed Cordoba MD Assessment and Plan Assessment and Plan 71-year-old male with abdominal pain; elevated total bilirubin and lipase; gallstones visualized on ultrasound -Plan to monitor labs particularly lipase and total bilirubin -IVF -Pain control -Bowel rest -May be able to get patient over acute pancreatitis episode and follow up in the office for elective laparoscopic cholecystectomy -Thank you for this consult; We will continue to follow Patient seen by myself in his room. I discussed options for his clinical condition. Based on the severity of his pancreatitis I would recommend outpatient elective cholecystectomy after his condition improves. Patient agrees to FU in office and schedule lap lynnette in 4 weeks. JARON DAWSON MD FACS Discussed Condition With Dr. Eunice Palm Mr. Sabina Massey Apr 05, 2017 17:48 Jaron Dawson MD Apr 10, 2017 12:52
[2017-04-05] MEDS: cloNIDine HCL 0.1 MG TAB PO PRN (18:31)
[2017-04-05] MEDS: DIAZEPAM 5 MG TAB PO PRN (22:04)
[2017-04-06] VITALS: BP 198/97; PULSE 80; RESP 16; TEMP 99; O2SAT 96
[2017-04-06] MEDS: cloNIDine HCL 0.1 MG TAB PO PRN ×2 (01:10→12:41)
[2017-04-06] MEDS: SODIUM CHLORIDE 0.9% FLUSH 10 ML FLUSH IV FLUSH PRN ×4 (01:11→07:06)
[2017-04-06] MEDS: MORPHINE SULFATE 4 MG/ML INJ IV PUSH PRN ×3 (01:11→07:06)
[2017-04-06] MEDS: ENALAPRILAT 1.25 MG/ML VIAL IV PUSH PRN (03:46)
[2017-04-06] MEDS: SODIUM CHLOR 0.9% 1000 ML INJ 1,000 ML IV SCH ×4 (03:46→21:17)
[2017-04-06 04:00] VITALS: BP 193/93; PULSE 76; RESP 16; TEMP 99; O2SAT 98
[2017-04-06 06:42] LABS: CHLORIDE 108 MEQ/L (98-107); POTASSIUM 3.6 MEQ/L (3.5-5.1); SODIUM (NA) 143 MEQ/L (136-145)
[2017-04-06 07:09] LABS: ALKALINE PHOSPHATASE 68 U/L (45-117); ALT (GPT) 63 U/L (12-78); ANION GAP 6 MEQ/L (5-15); AST (GOT) 44 U/L (15-37); BICARBONATE 28.8 MEQ/L (21.0-32.0); BLOOD UREA NITROGEN 14 MG/DL (7-18); GLOMERULAR FILTRATION RATE 81 ML/MIN (>89); TOTAL BILIRUBIN ADULT 3.1 MG/DL (0.2-1.0)
[2017-04-06 08:00] VITALS: BP 162/82; PULSE 84; RESP 18; TEMP 97.6; O2SAT 92
[2017-04-06] MEDS: POLYETHYLENE GLYCOL 17 GM PKG PO SCH (09:00)
[2017-04-06] MEDS: METOPROLOL SUCCINATE 50 MG EXTENDED RELEASE TAB PO SCH (09:34)
[2017-04-06] MEDS: HYDROCHLOROTHIAZIDE 25 MG TAB PO SCH (09:34)
[2017-04-06] MEDS: LISINOPRIL 20 MG TAB PO SCH (09:35)
--- NOTE | 2017-04-06 10:11 | HHI.PR ---
Subjective Subjective Notes Resting in bed Almost complete resolution of abdominal pain Objective Vitals/I&O Vital Signs Date Time Temp Pulse Resp B/P (MAP) Pulse Ox O2 Delivery O2 Flow Rate FiO2 04/06/17 08:00 97.6 84 18 162/82 (108) 92 04/05/17 08:15 Room Air Labs Laboratory Tests Test 04/05/17 16:24 04/06/17 05:00 Total Bilirubin 2.5 3.1 Direct Bilirubin 0.8 Lipase 62295 8137 Blood Urea Nitrogen 14 Creatinine 0.92 Random Glucose 119 Total Protein 5.9 Albumin 3.2 Calcium Level 7.8 Alkaline Phosphatase 68 Aspartate Amino Transf (AST/SGOT) 44 Alanine Aminotransferase (ALT/SGPT) 63 Sodium Level 143 Potassium Level 3.6 Chloride Level 108 Carbon Dioxide Level 28.8 Anion Gap 6 Estimat Glomerular Filtration Rate 81 Radiology Last 48 hours Impressions Abdomen/Pelvis CT 04/05/17 0643 Signed Impressions: Service Date/Time: Wednesday, April 05, 2017 07:40 - CONCLUSION: 1. Peripancreatic inflammation diagnostic of acute pancreatitis. There is no pancreatic necrosis or acute pancreatitis associated complications. Additionally, no specific cause identified. There is mild gallbladder wall edema but no definite gallstones are present and there is no bile duct dilatation. 2. 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 The smaller stone measures 2 mm and the larger measures 7 x 5 mm. 3. Mild splenomegaly with enhancing lesion measuring 2.2 cm.. This lesion has nonspecific imaging features. Suggest correlating with prior imaging studies that could confirm longer-term stability. If none are available consider elective outpatient MRI with and without intravenous contrast to potentially offer additional characterization. Aly Whiting MD Gall Bladder Ultrasound 04/05/17 0000 Signed Impressions: Service Date/Time: Wednesday, April 05, 2017 10:08 - CONCLUSION: 1. Mild gallbladder wall thickening and trace pericholecystic fluid with small nonobstructing 6 mm adherent echogenic structure near the gallbladder neck likely reflecting adherent stone or polyp. These findings are nonspecific in this patient with acute pancreatitis although acute cholecystitis cannot be excluded particularly given the pericholecystic fluid. Consider HIDA scan to evaluate for cystic duct patency. 1. Naveed Cordoba MD Cardiovascular: Regular Lungs: Clear Abdomen: Other (non distended; minimal abdominal pain ) Extremities: No edema A/P Assessment and Plan 71 year old male with acute pancreatitis and gallstone visualized on ultrasound -Clear liquids -Continue to follow labs -Likely will have patient follow up in the office and plan for elective laparoscopic cholecystectomy in the surgery center as long as abdominal pain continues to improve Sabina Abreu. [facility] Apr 06, 2017 10:11
[2017-04-06 12:00] VITALS: BP 186/90; PULSE 91; RESP 18; TEMP 97.3; O2SAT 93
[2017-04-06] MEDS: ENOXAPARIN SODIUM 30 MG/0.3 ML SYRINGE SQ SCH (12:41)
[2017-04-06] MEDS: ACETAMINOPHEN/HYDROcodone 325 MG/5 MG TAB PO PRN (12:45)
--- NOTE | 2017-04-06 13:57 | HHI.PR ---
Subjective Remarks Nursing denies any deterioration since last night. Patient himself however is reporting unchanged pain levels since yesterday. Says morphine is not helping that much. Doesn't have much nausea Objective Vital Signs Date Time Temp Pulse Resp B/P (MAP) Pulse Ox O2 Delivery O2 Flow Rate FiO2 04/06/17 12:00 97.3 91 18 186/90 (122) 93 04/06/17 08:00 97.6 84 18 162/82 (108) 92 04/06/17 04:00 99.0 76 16 193/93 (126) 98 04/06/17 00:00 99.0 80 16 198/97 (130) 96 04/05/17 20:00 98.6 85 16 198/98 (131) 95 04/05/17 15:47 18 04/05/17 15:10 96.0 83 20 194/105 (134) 97 I/O 04/05/17 04/05/17 04/05/17 04/06/17 04/06/17 04/06/17 07:00 15:00 23:00 07:00 15:00 23:00 Intake Total 2000 ml 875 ml 1486 ml Output Total 550 ml 775 ml Balance 2000 ml 325 ml 711 ml Intake Oral 0 ml IV Total 2000 ml 875 ml 1486 ml Output Urine Total 550 ml 775 ml # Voids 1 6 # Bowel Movements 0 Result Diagram: 04/05/17 0655 04/06/17 0500 Objective Remarks Mild diffuse tenderness over her abdomen, which is otherwise soft, positive bowel sounds, no jaundice Unlabored breathing, no acute distress A/P Assessment and Plan Abdominal pain - Likely secondary to pancreatitis - Still persistent - Further workup as illustrated below Severe pancreatitis - Lipase and LFTs are improving except for total bilirubin which is slightly more elevated today - Nothing by mouth until MRCP is done to evaluate for possible choledocholithiasis. - Starting [place], cutting off morphine cholelithiasis - surg plans for outpt resection constipation -stool softeners HTN - continue home meds DVT prophylaxis Elder Nguyen MD Apr 06, 2017 13:57
[2017-04-06] MEDS ORDERED: LORazepam 2 MG/ML VIAL IV PUSH ONE (14:15)
[2017-04-06 16:00] VITALS: BP 126/57; PULSE 81; RESP 18; TEMP 98.3; O2SAT 94
--- NOTE | 2017-04-06 16:07 | RADRPT ---
EXAM DATE/TIME: 04/06/2017 15:10 [facility] COMPARISON: CT ABDOMEN & PELVIS W CONTRAST, April 05, 2017, 7:40. US ABDOMEN - GALLBLADDER, April 05, 2017 , 10:08. INDICATIONS : Obstruction. MEDICAL HISTORY : Hypertension. SURGICAL HISTORY : None. ENCOUNTER: Initial ACUITY: 1 day PAIN SCORE: 7/10 LOCATION: Abdomen. TECHNIQUE: Multiplanar, multisequence magnetic resonance imaging of the abdomen was performed. High-resolution 3D dataset was utilized to reconstruct maximum-intensity projection (MIP) images. FINDINGS: INTRAHEPATIC BILE DUCTS: Within normal limits. No significant anatomical variant is present. EXTRAHEPATIC BILE DUCTS: The common bile duct measures 7.6 mm. No stone or filling defect is identified. GALLBLADDER: A small stone is identified in the gallbladder neck. The cystic duct is normal in caliber. Again note d is mild gallbladder wall thickening with mild pericholecystic fluid accumulation. LIVER: Normal size and signal intensity. No concerning liver lesion is identified on this non-contrast exam. PANCREAS: Mild peripancreatic inflammation and fluid is noted. There are no localized or mature fluid collectio ns. Main pancreatic duct is not appear dilated. OTHER: A 2 cm T2 hyperintense nodule is identified in the spleen. The remaining visualized structures demons trate no acute abnormality on this non-contrast exam. CONCLUSION: 1. Mild gallbladder wall thickening and pericholecystic fluid with evidence of cholelithiasis. Findin gs are characteristic of mild or low grade cholecystitis. 2. No evidence of significant biliary duct or common bile duct dilatation. 3. No evidence of filling defects within the common bile duct. 4. Acute pancreatitis without evidence of pseudocyst formation. 5. 2 cm hyperintense splenic lesion statistically most characteristic of a hemangioma. It is incomple tely characterized without the use of contrast. Gabino Shelton MD on April 06, 2017 at 15:52 Board Certified Radiologist. This report was verified electronically.
[2017-04-06 20:00] VITALS: BP 174/86; PULSE 95; RESP 16; TEMP 100.3; O2SAT 93
[2017-04-06] MEDS: DIAZEPAM 5 MG TAB PO PRN (22:22)
[2017-04-07] VITALS: BP 165/90; PULSE 115; RESP 20; TEMP 100.5; O2SAT 95
[2017-04-07] MEDS: cloNIDine HCL 0.1 MG TAB PO PRN ×2 (01:25→20:35)
[2017-04-07] MEDS: ENALAPRILAT 1.25 MG/ML VIAL IV PUSH PRN ×2 (01:25→20:35)
[2017-04-07] MEDS: ACETAMINOPHEN/HYDROcodone 325 MG/5 MG TAB PO PRN ×2 (01:25→23:19)
[2017-04-07] MEDS: SODIUM CHLORIDE 0.9% FLUSH 10 ML FLUSH IV FLUSH PRN ×2 (01:25→20:35)
[2017-04-07 04:00] VITALS: BP 174/91; PULSE 97; RESP 16; TEMP 99.7; O2SAT 95
[2017-04-07] MEDS: SODIUM CHLOR 0.9% 1000 ML INJ 1,000 ML IV SCH ×2 (04:53→14:35)
[2017-04-07 08:00] VITALS: BP 140/77; PULSE 77; RESP 18; TEMP 97.8; O2SAT 94
[2017-04-07 08:09] LABS: AUTOMATED NEUTROPHIL # 11.5 TH/MM3 (1.8-7.7); EOSINOPHIL % 0.2 % (0.0-4.0); HEMATOCRIT 41.4 % (39.0-51.0); LYMPH % 7.2 % (9.0-44.0); MEAN CELL VOLUME 84.4 FL (80.0-100.0); MEAN CORPUSCULAR HEMOGLOBIN 28.8 PG (27.0-34.0); MEAN CORPUSCULAR HGB CONC 34.2 % (32.0-36.0); NEUT % 86.6 % (16.0-70.0); PLATELET COUNT 111 TH/MM3 (150-450); RED BLOOD COUNT 4.91 MIL/MM3 (4.50-5.90); RED CELL DISTRIBUTION WIDTH 13.4 % (11.6-17.2); WHITE BLOOD COUNT 13.3 TH/MM3 (4.0-11.0)
[2017-04-07 08:11] LABS: HEMO FLAGS AUTO DIFF
--- NOTE | 2017-04-07 08:11 | HHI.PR ---
cc: Rodrick Bishop MD Subjective Subjective Notes DAILY PROGRESS NOTE FOR SURGICAL ATTENDING, DR. RODRICK BISHOP Patient would like something to eat Still has some abdominal pain What is my ERCP show he asked me Objective Vitals/I&O Vital Signs Date Time Temp Pulse Resp B/P (MAP) Pulse Ox O2 Delivery O2 Flow Rate FiO2 04/07/17 04:00 99.7 97 16 174/91 (579) 95 04/05/17 08:15 Room Air Labs Laboratory Tests Test 04/05/17 06:49 04/05/17 16:24 04/07/17 07:27 Urine Collection Type CLEAN CATCH Urine Color YELLOW Urine Turbidity CLEAR Urine pH 6.0 Urine Specific Stout 1.012 Urine Protein 30 mg/dL Urine Glucose (UA) NEG mg/dL Urine Ketones NEG mg/dL Urine Occult Blood SMALL Urine Nitrite NEG Urine Bilirubin NEG Urine Leukocyte Esterase NEG Urine RBC 4-9 /hpf Urine WBC 0-2 /hpf Urine Squamous Epithelial Cells 0-5 /hpf Microscopic Urinalysis Comment CULT NOT INDICATED Urine Collection Time 06:49 Direct Bilirubin 0.8 MG/DL White Blood Count 13.3 TH/MM3 Red Blood Count 4.91 MIL/MM3 Hemoglobin 14.1 GM/DL Hematocrit 41.4 % Mean Corpuscular Volume 84.4 FL Mean Corpuscular Hemoglobin 28.8 PG Mean Corpuscular Hemoglobin Concent 34.2 % Red Cell Distribution Width 13.4 % Platelet Count 111 TH/MM3 Mean Platelet Volume 7.1 FL Neutrophils (%) (Auto) 86.6 % Lymphocytes (%) (Auto) 7.2 % Monocytes (%) (Auto) 6.0 % Eosinophils (%) (Auto) 0.2 % Basophils (%) (Auto) 0.0 % Neutrophils # (Auto) 11.5 TH/MM3 Lymphocytes # (Auto) 1.0 TH/MM3 Monocytes # (Auto) 0.8 TH/MM3 Eosinophils # (Auto) 0.0 TH/MM3 Basophils # (Auto) 0.0 TH/MM3 CBC Comment AUTO DIFF Differential Total Cells Counted 100 Neutrophils % (Manual) 74 % Band Neutrophils % 19 % Lymphocytes % 3 % Monocytes % 4 % Neutrophils # (Manual) 12.4 TH/MM3 Differential Comment FINAL DIFF MANUAL Platelet Estimate LOW Platelet Morphology Comment NORMAL Red Cell Morphology Comment NORMAL Blood Urea Nitrogen 12 MG/DL Creatinine 0.85 MG/DL Random Glucose 112 MG/DL Total Protein 5.8 GM/DL Albumin 2.9 GM/DL Calcium Level 7.7 MG/DL Alkaline Phosphatase 67 U/L Aspartate Amino Transf (AST/SGOT) 34 U/L Alanine Aminotransferase (ALT/SGPT) 47 U/L Total Bilirubin 4.4 MG/DL Sodium Level 137 MEQ/L Potassium Level 3.0 MEQ/L Chloride Level 103 MEQ/L Carbon Dioxide Level 28.6 MEQ/L Anion Gap 5 MEQ/L Estimat Glomerular Filtration Rate 89 ML/MIN Lipase 1127 U/L Radiology Last Impressions Cholangiopancreatography MRI 04/06/17 0000 Signed Impressions: Service Date/Time: March 15:10 - CONCLUSION: 1. Mild gallbladder wall thickening and pericholecystic fluid with evidence of cholelithiasis. Findings are characteristic of mild or low grade cholecystitis. 2. No evidence of significant biliary duct or common bile duct dilatation. 3. No evidence of filling defects within the common bile duct. 4. Acute pancreatitis without evidence of pseudocyst formation. 5. 2 cm hyperintense splenic lesion statistically most characteristic of a hemangioma. It is incompletely characterized without the use of contrast. Gabino Shelton MD Abdomen/Pelvis CT 04/05/17 0643 Signed Impressions: Service Date/Time: Wednesday, April 05, 2017 07:40 - CONCLUSION: 1. Peripancreatic inflammation diagnostic of acute pancreatitis. There is no pancreatic necrosis or acute pancreatitis associated complications. Additionally, no specific cause identified. There is mild gallbladder wall edema but no definite gallstones are present and there is no bile duct dilatation. 2. 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 The smaller stone measures 2 mm and the larger measures 7 x 5 mm. 3. Mild splenomegaly with enhancing lesion measuring 2.2 cm.. This lesion has nonspecific imaging features. Suggest correlating with prior imaging studies that could confirm longer-term stability. If none are available consider elective outpatient MRI with and without intravenous contrast to potentially offer additional characterization. Aly Whiting MD Gall Bladder Ultrasound 04/05/17 0000 Signed Impressions: Service Date/Time: Wednesday, April 05, 2017 10:08 - CONCLUSION: 1. Mild gallbladder wall thickening and trace pericholecystic fluid with small nonobstructing 6 mm adherent echogenic structure near the gallbladder neck likely reflecting adherent stone or polyp. These findings are nonspecific in this patient with acute pancreatitis although acute cholecystitis cannot be excluded particularly given the pericholecystic fluid. Consider HIDA scan to evaluate for cystic duct patency. 1. Naveed Cordoba MD Cardiovascular: Regular Lungs: Clear Abdomen: Other (tender midepigastric region no rebound or guarding mild soreness right upper quadrant) Extremities: Perfused, SCD's on A/P Problem List: (1) Acute gallstone pancreatitis ICD Codes: K85.10 - Biliary acute pancreatitis without necrosis or infection Status: Acute (2) Acute pancreatitis ICD Codes: K85.90 - Acute pancreatitis without necrosis or infection, unspecified Status: Acute (3) Abnormal ultrasound ICD Codes: R93.8 - Abnormal findings on diagnostic imaging of other specified body structures Status: Acute (4) Abnormal findings on diagnostic imaging of liver and biliary tract ICD Codes: R93.2 - Abnormal findings on diagnostic imaging of liver and biliary tract Status: Acute (5) RUQ pain ICD Codes: R10.11 - Right upper quadrant pain Status: Acute (6) Elevated lipase ICD Codes: R74.8 - Abnormal levels of other serum enzymes Status: Acute (7) Elevated bilirubin ICD Codes: R17 - Unspecified jaundice Status: Acute Assessment and Plan 71-year-old gentleman with gallstone pancreatitis somewhat resolving. MRcp does not show any choledocholithiasis Increase in total bilirubin We checked bilirubin tomorrow if increase consider GI consultation for repeat MRCP Pancreatitis noted Will increase diet Allow pancreatitis to resolve and then proceed with cholecystectomy either next week during this admission or as an outpatient basis if he is discharged over the weekend Attending Statement NOTE FOR SURGICAL ATTENDING, DR. RODRICK BISHOP I attest that I had a [id number] encounter with the patient on the same day, and personally performed and documented my assessment and findings in the medical record. The following services were provided during this hospital visit: Chart data review, vital sign assessments/reviewing monitor data Review of consultations notes if present. Medication orders/review and/or management Ordering and/or reviewing lab tests Ordering and/or interpreting/reviewing x-rays and/or diagnostic studies Care of the patient and discussion of the patient with the care team Documentation time To help prompt me to consider important information that might be impacting today's encounter and assessment, information from prior notes written by myself or my colleagues may have been "brought forward/copy and pasted" into today's note. Rodrick Bishop MD Apr 07, 2017 08:11
[2017-04-07 08:13] LABS: CHLORIDE 103 MEQ/L (98-107); SODIUM (NA) 137 MEQ/L (136-145)
[2017-04-07 08:48] LABS: ALKALINE PHOSPHATASE 67 U/L (45-117); ALT (GPT) 47 U/L (12-78); ANION GAP 5 MEQ/L (5-15); AST (GOT) 34 U/L (15-37); BICARBONATE 28.6 MEQ/L (21.0-32.0); BLOOD UREA NITROGEN 12 MG/DL (7-18); GLOMERULAR FILTRATION RATE 89 ML/MIN (>89); TOTAL BILIRUBIN ADULT 4.4 MG/DL (0.2-1.0)
[2017-04-07] MEDS: POLYETHYLENE GLYCOL 17 GM PKG PO SCH (09:00)
--- NOTE | 2017-04-07 09:28 | RADRPT ---
EXAM DATE/TIME: 04/07/2017 08:56 [facility] COMPARISON: CT ABDOMEN & PELVIS W CONTRAST, April 05, 2017, 7:40. INDICATIONS : Fever MEDICAL HISTORY : Hypertension. SURGICAL HISTORY : None. ENCOUNTER: Initial ACUITY: 2 days PAIN SCORE: 5/10 LOCATION: chest FINDINGS: Aairspace consolidation in the medial left lower lobe posteriorly. Cardiomediastinal contours within normal limits. Bony thorax is intact. CONCLUSION: 1. Left lower lobe airspace consolidation concerning for pneumonia given history of fever. Naveed Cordoba MD on April 07, 2017 at 9:25 Board Certified Radiologist. This report was verified electronically.
[2017-04-07] MEDS: HYDROCHLOROTHIAZIDE 25 MG TAB PO SCH (09:43)
[2017-04-07] MEDS: METOPROLOL SUCCINATE 50 MG EXTENDED RELEASE TAB PO SCH (09:43)
[2017-04-07] MEDS: LISINOPRIL 20 MG TAB PO SCH (09:43)
[2017-04-07 10:24] LABS: BANDS 19 % (0-6); NEUTROPHIL # MANUAL DIFF 12.4 TH/MM3 (1.8-7.7); POLYS (SEG NEUTROPHILS) 74 % (16-70); WBC DIFF SAMPLE 100
[2017-04-07 10:25] LABS: PLATELET ESTIMATE SMEAR LOW (NORMAL); PLATELET MORPHOLOGY NORMAL (NORMAL); SCAN/DIFF FINAL DIFF MANUAL
--- NOTE | 2017-04-07 11:55 | HHI.PR ---
Subjective Remarks Nursing reports that the patient did have some hallucinations last night. He tolerated the MRI well after being given Ativan with a towel on his face. Patient says that his pain is slightly better today, is willing to try to eat more stuff today. Patient did have a fever of 100.5 early this morning and white count is climbing. Denies any N/V, cough, or SOB. Objective Vital Signs Date Time Temp Pulse Resp B/P (MAP) Pulse Ox O2 Delivery O2 Flow Rate FiO2 04/07/17 08:00 97.8 77 18 140/77 (98) 94 04/07/17 04:00 99.7 97 16 174/91 (118) 95 04/07/17 02:25 18 04/07/17 00:00 100.5 115 20 165/90 (115) 95 04/06/17 20:00 100.3 95 16 174/86 (115) 93 04/06/17 16:00 98.3 81 18 126/57 (80) 94 04/06/17 12:00 97.3 91 18 186/90 (122) 93 I/O 04/06/17 04/06/17 04/06/17 04/07/17 04/07/17 04/07/17 07:00 15:00 23:00 07:00 15:00 23:00 Intake Total 1486 ml 840 ml 478 ml 1365 ml Output Total 775 ml 200 ml Balance 711 ml 840 ml 478 ml 1365 ml -200 ml Intake Oral 840 ml 240 ml IV Total 1486 ml 478 ml 1125 ml Output Urine Total 775 ml 200 ml # Voids 6 3 4 3 Result Diagram: 04/07/1772604/07/17726 Objective Remarks Mild diffuse tenderness over her abdomen, which is otherwise soft, positive bowel sounds, no jaundice Unlabored breathing, no acute distress Lung sounds are clear anteriorly A/P Assessment and Plan Sepsis secondary to possible intra-abdominal infection - White count climbing and fever, blood cultures, cxr independently reviewed by shows possible infiltrate in RML/RLL - starting levaquin and vanc for lung coverage, levaquin and flagyl for GI coverage Abdominal pain - Likely secondary to pancreatitis - Still persistent - Further workup as illustrated below Severe pancreatitis - improving - will advance diet as tolerated - MRCP not showing any ductal dilatation suggestive of choledocholithiasis cholelithiasis - surg plans for outpt resection constipation -stool softeners HTN - continue home meds DVT prophylaxis Elder Nguyen MD Apr 07, 2017 11:55
[2017-04-07] MEDS: ENOXAPARIN SODIUM 30 MG/0.3 ML SYRINGE SQ SCH (12:00)
[2017-04-07] MEDS: LEVOFLOXACIN 750 MG PREMIX INJ 150 ML IV SCH (14:34)
[2017-04-07] MEDS: metroNIDAZOLE 500 MG INJ 100 ML IV SCH ×2 (14:34→20:34)
[2017-04-07 16:00] VITALS: BP 132/70; PULSE 79; RESP 21; TEMP 97.5; O2SAT 96
[2017-04-07 20:00] VITALS: BP 170/82; PULSE 93; RESP 20; TEMP 97.8; O2SAT 93
[2017-04-07] MEDS: DIAZEPAM 5 MG TAB PO PRN (21:59)
[2017-04-08] VITALS (8 sets, daily range): BP systolic 157–184; BP diastolic 76–98; PULSE 87–95; RESP 18–20; TEMP 96.2–97.6; O2SAT 92–95
[2017-04-08] MEDS: cloNIDine HCL 0.1 MG TAB PO PRN ×3 (01:36→20:01)
[2017-04-08] MEDS: SODIUM CHLOR 0.9% 1000 ML INJ 1,000 ML IV SCH ×3 (01:37→22:13)
[2017-04-08] MEDS: metroNIDAZOLE 500 MG INJ 100 ML IV SCH ×3 (05:07→19:51)
[2017-04-08] MEDS: DIAZEPAM 5 MG TAB PO PRN ×2 (05:20→22:16)
[2017-04-08] MEDS: ENALAPRILAT 1.25 MG/ML VIAL IV PUSH PRN ×2 (05:20→21:22)
[2017-04-08 07:23] LABS: AUTOMATED NEUTROPHIL # 10.9 TH/MM3 (1.8-7.7); BASOPHIL % 0.2 % (0.0-2.0); EOSINOPHIL # 0.1 TH/MM3 (0-0.4); EOSINOPHIL % 0.9 % (0.0-4.0); HEMATOCRIT 36.5 % (39.0-51.0); LYMPH % 8.3 % (9.0-44.0); LYMPHOCYTE # 1.1 TH/MM3 (1.0-4.8); MEAN CELL VOLUME 83.7 FL (80.0-100.0); MEAN CORPUSCULAR HEMOGLOBIN 29.7 PG (27.0-34.0); MEAN CORPUSCULAR HGB CONC 35.5 % (32.0-36.0); MONO % 5.9 % (0.0-8.0); NEUT % 84.7 % (16.0-70.0); PLATELET COUNT 104 TH/MM3 (150-450); RED BLOOD COUNT 4.36 MIL/MM3 (4.50-5.90); WHITE BLOOD COUNT 12.9 TH/MM3 (4.0-11.0)
[2017-04-08 07:25] LABS: HEMO FLAGS DIFF FINAL
[2017-04-08 08:07] LABS: BICARBONATE 23.7 MEQ/L (21.0-32.0); CALCIUM-PROTEIN CORRECTED 8.2 MG/DL (8.5-10.1); TOTAL BILIRUBIN ADULT 3.9 MG/DL (0.2-1.0)
[2017-04-08] MEDS: LISINOPRIL 20 MG TAB PO SCH (09:33)
[2017-04-08] MEDS: HYDROCHLOROTHIAZIDE 25 MG TAB PO SCH (09:33)
[2017-04-08] MEDS: METOPROLOL SUCCINATE 50 MG EXTENDED RELEASE TAB PO SCH (09:33)
[2017-04-08] MEDS: POLYETHYLENE GLYCOL 17 GM PKG PO SCH (09:35)
[2017-04-08] MEDS: ACETAMINOPHEN/HYDROcodone 325 MG/5 MG TAB PO PRN ×2 (09:43→17:47)
--- NOTE | 2017-04-08 11:02 | HHI.PR ---
Subjective Remarks Nursing denies any deterioration since last night. Patient himself says he still has pain but it is better since admission. is concerned that the patient is having confusion and thought that it might have been the Ativan he received 2 days ago before the MRI. Otherwise patient says he doesn't like the food he is eating, says she will bring him in something from the outside. No recurrence of fever since last night. Objective Vital Signs Date Time Temp Pulse Resp B/P (MAP) Pulse Ox O2 Delivery O2 Flow Rate FiO2 04/08/17 08:00 97.6 95 20 175/84 (114) 93 04/08/17 04:00 96.2 89 20 180/86 (117) 92 04/08/17 00:19 20 04/08/17 00:00 96.9 89 20 166/81 (109) 93 04/07/17 20:00 97.8 93 20 170/82 (111) 93 04/07/17 16:00 97.5 79 21 132/70 (90) 96 I/O 04/07/17 04/07/17 04/07/17 04/08/17 04/08/17 04/08/17 07:00 15:00 23:00 07:00 15:00 23:00 Intake Total 1365 ml 250 ml 2040 ml Output Total 200 ml 1000 ml 200 ml Balance 1365 ml -200 ml 250 ml 1040 ml -200 ml Intake Oral 240 ml 480 ml IV Total 1125 ml 250 ml 1560 ml Output Urine Total 200 ml 1000 ml 200 ml # Voids 3 Result Diagram: 04/08/1715 04/08/17 0615 Objective Remarks Mild diffuse tenderness over her abdomen, which is otherwise soft, positive bowel sounds, no jaundice Unlabored breathing, no acute distress Lung sounds are clear anteriorly A/P Assessment and Plan Sepsis secondary to possible intra-abdominal infection - improving -White count is improving - Continue Levaquin and Flagyl for GI coverage and Levaquin for lung coverage Abdominal pain - Likely secondary to pancreatitis - Still persistent - Stable - norco as needed Pancreatitis - improving - will advance diet as tolerated - MRCP not showing any ductal dilatation suggestive of choledocholithiasis Worsening hyperbilirubinemia - Discussed with general surgery, will consult GI for further recs. Original MRCP was done without contrast to evaluate for any stone based obstruction but with contrast would be used to look for any type of mass or tumor affect otherwise per aviation electronics technician. - cmp in AM w/ cbc cholelithiasis - surg plans for outpt resection constipation -stool softeners HTN - continue home meds DVT prophylaxis lovenox Elder Palm MD Apr 08, 2017 11:02
--- NOTE | 2017-04-08 11:16 | HHI.PR ---
Subjective Subjective Notes lipase pending, pain better t bili 3.9, states he does not like the food here Objective Vitals/I&O Vital Signs Date Time Temp Pulse Resp B/P (MAP) Pulse Ox O2 Delivery O2 Flow Rate FiO2 04/08/17 08:00 97.6 95 20 175/84 (114) 93 04/05/17 08:15 Room Air Labs Laboratory Tests Test 04/08/17 06:15 04/08/17 11:07 White Blood Count 12.9 Red Blood Count 4.36 Hemoglobin 13.0 Hematocrit 36.5 Mean Corpuscular Volume 83.7 Mean Corpuscular Hemoglobin 29.7 Mean Corpuscular Hemoglobin Concent 35.5 Red Cell Distribution Width 13.0 Platelet Count 104 Mean Platelet Volume 7.1 Neutrophils (%) (Auto) 84.7 Lymphocytes (%) (Auto) 8.3 Monocytes (%) (Auto) 5.9 Eosinophils (%) (Auto) 0.9 Basophils (%) (Auto) 0.2 Neutrophils # (Auto) 10.9 Lymphocytes # (Auto) 1.1 Monocytes # (Auto) 0.8 Eosinophils # (Auto) 0.1 Basophils # (Auto) 0.0 CBC Comment DIFF FINAL Differential Comment Blood Urea Nitrogen 11 Creatinine 0.78 Random Glucose 118 Total Protein 5.7 Albumin 2.6 Calcium Level 7.5 Alkaline Phosphatase 67 Aspartate Amino Transf (AST/SGOT) 25 Alanine Aminotransferase (ALT/SGPT) 33 Total Bilirubin 3.9 Sodium Level 135 Potassium Level 3.0 Chloride Level 101 Carbon Dioxide Level 23.7 Anion Gap 10 Estimat Glomerular Filtration Rate 98 Protein Corrected Calcium 8.2 Date/Time Source Procedure Growth Status 04/07/17 09:45 Blood Peripheral Aerobic Blood Culture - Preliminary NO GROWTH IN 1 DAY Resulted 04/07/17 09:45 Blood Peripheral Anaerobic Blood Culture - Preliminary NO GROWTH IN 1 DAY Resulted 04/07/17 23:05 Urine Random Urine Legionella Antigen - Final PRESUMPTIVE NEGATIVE FOR LEGIONELLA P... Complete 04/07/17 23:05 Urine Random Urine Streptococcus pneumoniae Antigen (M - Final PRESUMPTIVE NEGATIVE FOR STREPTOCOCCU... Complete Radiology Last Impressions Cholangiopancreatography MRI 04/06/17 0000 Signed Impressions: Service Date/Time: March 15:10 - CONCLUSION: 1. Mild gallbladder wall thickening and pericholecystic fluid with evidence of cholelithiasis. Findings are characteristic of mild or low grade cholecystitis. 2. No evidence of significant biliary duct or common bile duct dilatation. 3. No evidence of filling defects within the common bile duct. 4. Acute pancreatitis without evidence of pseudocyst formation. 5. 2 cm hyperintense splenic lesion statistically most characteristic of a hemangioma. It is incompletely characterized without the use of contrast. Gabino Shelton MD Abdomen/Pelvis CT 04/05/17 0643 Signed Impressions: Service Date/Time: Wednesday, April 05, 2017 07:40 - CONCLUSION: 1. Peripancreatic inflammation diagnostic of acute pancreatitis. There is no pancreatic necrosis or acute pancreatitis associated complications. Additionally, no specific cause identified. There is mild gallbladder wall edema but no definite gallstones are present and there is no bile duct dilatation. 2. 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 The smaller stone measures 2 mm and the larger measures 7 x 5 mm. 3. Mild splenomegaly with enhancing lesion measuring 2.2 cm.. This lesion has nonspecific imaging features. Suggest correlating with prior imaging studies that could confirm longer-term stability. If none are available consider elective outpatient MRI with and without intravenous contrast to potentially offer additional characterization. Aly Whiting MD Gall Bladder Ultrasound 04/05/17 0000 Signed Impressions: Service Date/Time: Wednesday, April 05, 2017 10:08 - CONCLUSION: 1. Mild gallbladder wall thickening and trace pericholecystic fluid with small nonobstructing 6 mm adherent echogenic structure near the gallbladder neck likely reflecting adherent stone or polyp. These findings are nonspecific in this patient with acute pancreatitis although acute cholecystitis cannot be excluded particularly given the pericholecystic fluid. Consider HIDA scan to evaluate for cystic duct patency. 1. Naveed Cordoba MD Abdomen: Other (soft +epigastric tenderness) A/P Problem List: (1) Acute gallstone pancreatitis ICD Codes: K85.10 - Biliary acute pancreatitis without necrosis or infection Status: Acute (2) Acute pancreatitis ICD Codes: K85.90 - Acute pancreatitis without necrosis or infection, unspecified Status: Acute (3) Abnormal ultrasound ICD Codes: R93.8 - Abnormal findings on diagnostic imaging of other specified body structures Status: Acute (4) Abnormal findings on diagnostic imaging of liver and biliary tract ICD Codes: R93.2 - Abnormal findings on diagnostic imaging of liver and biliary tract Status: Acute (5) RUQ pain ICD Codes: R10.11 - Right upper quadrant pain Status: Acute (6) Elevated lipase ICD Codes: R74.8 - Abnormal levels of other serum enzymes Status: Acute (7) Elevated bilirubin ICD Codes: R17 - Unspecified jaundice Status: Acute Assessment and Plan 71-year-old gentleman with gallstone pancreatitis somewhat resolving. MRcp does not show any choledocholithiasis Increase in total bilirubin- 3.9 today from 4.4 recommend GI consult Pancreatitis noted ok for diet as tolerated Allow pancreatitis to resolve and then proceed with cholecystectomy either next week during this admission or as an outpatient basis if he is discharged over the weekend Daniel Zamudio MD Apr 08, 2017 11:16
[2017-04-08] MEDS: ENOXAPARIN SODIUM 30 MG/0.3 ML SYRINGE SQ SCH (12:28)
[2017-04-08 12:32] LABS: AUTOMATED NEUTROPHIL # 11.6 TH/MM3 (1.8-7.7); BASOPHIL % 0.2 % (0.0-2.0); EOSINOPHIL % 0.2 % (0.0-4.0); HEMATOCRIT 38.6 % (39.0-51.0); HEMO FLAGS DIFF FINAL; LYMPH % 6.3 % (9.0-44.0); LYMPHOCYTE # 0.8 TH/MM3 (1.0-4.8); MEAN CELL VOLUME 83.9 FL (80.0-100.0); MEAN CORPUSCULAR HEMOGLOBIN 29.3 PG (27.0-34.0); MEAN CORPUSCULAR HGB CONC 34.9 % (32.0-36.0); NEUT % 88.3 % (16.0-70.0); PLATELET COUNT 116 TH/MM3 (150-450); RED CELL DISTRIBUTION WIDTH 13.2 % (11.6-17.2)
[2017-04-08 12:37] LABS: ALKALINE PHOSPHATASE 73 U/L (45-117); ALT (GPT) 35 U/L (12-78); ANION GAP 10 MEQ/L (5-15); AST (GOT) 31 U/L (15-37); BICARBONATE 23.8 MEQ/L (21.0-32.0); BLOOD UREA NITROGEN 10 MG/DL (7-18); CHLORIDE 101 MEQ/L (98-107); GLOMERULAR FILTRATION RATE 98 ML/MIN (>89); SODIUM (NA) 135 MEQ/L (136-145); TOTAL BILIRUBIN ADULT 3.5 MG/DL (0.2-1.0)
[2017-04-08 12:42] LABS: POTASSIUM 2.9 MEQ/L (3.5-5.1)
[2017-04-08] MEDS: LEVOFLOXACIN 750 MG PREMIX INJ 150 ML IV SCH (13:40)
--- NOTE | 2017-04-08 15:18 | MB ---
cc: CAMILO GUERRERO MD DATE OF CONSULTATION: 04/08/2017. REASON FOR CONSULTATION: Abnormal bilirubin. REFERRING PHYSICIAN: Dr. Palm. HISTORY OF PRESENT ILLNESS: This is a 71-year-old male patient who presented to the emergency room complaining of abdominal pain and was found to have acute severe pancreatitis. His presentation was as a sudden onset severe pain in the epigastrium 8/10 in intensity that was radiating to his entire abdomen. The patient denied any nausea or vomiting or any other associated symptoms and no fever, chills or rigors. The patient was seen and evaluated and had initial workup that showed evidence of mild gallbladder thickening and pericholecystic fluid suggestive of early acute cholecystitis and his labs were suggestive of acute pancreatitis as manifested by increase in lipase. The patient subsequently had a CT scan followed by MRCP. The CT scan was showing evidence of luz marina- pancreatic inflammation suggestive of acute pancreatitis in addition to mild gallbladder wall edema but no definitive stones. The MRCP showed again mild gallbladder wall thickening and pericholecystic fluid suggestive of low-grade cholecystitis but no biliary duct dilatation. His labs showed a trend of decreasing liver enzymes starting with a bilirubin of 4.4 and over the period of time, it trended down to normal including AST and ALT. At the current time, his bilirubin is 3.5. The patient at the current time denies any abdominal pain, nausea or vomiting or any other associated symptoms other than the abnormal liver enzymes. The patient denies any other abnormality. REVIEW OF SYSTEMS: All fourteen point review of systems negative other than the ones mentioned in the history of present illness. PAST MEDICAL HISTORY: 1. Hypertension. 2. Prostate CA status post radiation therapy. ALLERGIES: NO KNOWN DRUG ALLERGIES. FAMILY HISTORY: His father had lung cancer. PSYCHOSOCIAL HISTORY: He is an ex-smoker. Minimal drinking of one to two beers every few days. PHYSICAL EXAMINATION: GENERAL: On examination, the patient was found to be comfortable and not in distress or in pain, hemodynamically stable. HEAD AND NECK: Normocephalic and atraumatic. Pupils equal and reactive to light. Supple neck. No lymphadenopathy. No thyromegaly. CHEST: Clear to auscultation bilaterally. No crackles or wheezes. HEART: Regular rate and rhythm. No murmurs. ABDOMEN: Soft with minimal tenderness on deep palpation. No palpable masses. No hepatosplenomegaly. EXTREMITIES: Normal pulses. No edema. NEUROLOGICAL EXAMINATION: Cranial nerves II through XII are grossly intact. SKIN: No rashes. LABORATORY DATA: White count of 13.0, platelets of 116,000, hemoglobin and hematocrit within normal limits. Chemistry showed normal electrolytes, total bilirubin of 3.5, AST 31, ALT 35, albumin 2.5 and alkaline phosphatase 73. ASSESSMENT: A 71-year-old male patient who presents with the following problems: 1. Abnormal bilirubin of several days duration with normal MRCP. 2. Acute cholecystitis. 3. Acute pancreatitis. 4. Imaging studies suggestive of pancreatitis and cholecystitis without any biliary dilatation. RECOMMENDATIONS: 1. Will monitor liver function tests again and check the bilirubin in the a.m. 2. Will check fractionation of bilirubin to direct and indirect. 3. Follow gamma GTT. 4. Consider options causing this problem including Gilbert syndrome versus slow trending of the normal liver enzymes. Thank you for the consult. Further recommendations to follow. Camilo CONTI/CAMRON /2:28 PM /3:08 PM
[2017-04-08] MEDS ORDERED: POTASSIUM CHLORIDE 10 MEQ CONTROLLED RELEASE TAB PO ONE (18:00)
[2017-04-08] MEDS ORDERED: cloNIDine HCL 0.1 MG TAB PO ONE (23:30)
[2017-04-09 00:51] VITALS: BP 179/89; PULSE 95; RESP 18; TEMP 97.6; O2SAT 95
[2017-04-09] MEDS: SODIUM CHLOR 0.9% 1000 ML INJ 1,000 ML IV SCH ×2 (02:30→10:02)
[2017-04-09] MEDS: metroNIDAZOLE 500 MG INJ 100 ML IV SCH ×2 (05:24→12:49)
[2017-04-09 06:31] LABS: ALKALINE PHOSPHATASE 70 U/L (45-117); ALT (GPT) 28 U/L (12-78); ANION GAP 10 MEQ/L (5-15); AST (GOT) 17 U/L (15-37); BICARBONATE 24.2 MEQ/L (21.0-32.0); BLOOD UREA NITROGEN 9 MG/DL (7-18); CHLORIDE 102 MEQ/L (98-107); GLOMERULAR FILTRATION RATE 111 ML/MIN (>89); SODIUM (NA) 136 MEQ/L (136-145); TOTAL BILIRUBIN ADULT 2.6 MG/DL (0.2-1.0)
[2017-04-09 06:38] LABS: POTASSIUM 2.8 MEQ/L (3.5-5.1)
[2017-04-09 08:00] VITALS: BP 185/90; PULSE 88; RESP 18; TEMP 97.6; O2SAT 97
[2017-04-09] MEDS: POLYETHYLENE GLYCOL 17 GM PKG PO SCH (09:00)
[2017-04-09] MEDS: HYDROCHLOROTHIAZIDE 25 MG TAB PO SCH (10:02)
[2017-04-09] MEDS: METOPROLOL SUCCINATE 50 MG EXTENDED RELEASE TAB PO SCH (10:02)
[2017-04-09] MEDS: LISINOPRIL 20 MG TAB PO SCH (10:02)
[2017-04-09 12:00] VITALS: BP 162/79; PULSE 91; RESP 20; TEMP 96.9; O2SAT 96
[2017-04-09] MEDS ORDERED: POTASSIUM CHLORIDE 10 MEQ CONTROLLED RELEASE TAB PO SCH (12:00)
[2017-04-09] MEDS ORDERED: NS + KCL 40 MEQ INJ 1,000 ML IV ONE (12:00)
[2017-04-09] MEDS ORDERED: LISINOPRIL 20 MG TAB PO ONE (12:00)
[2017-04-09] MEDS: ENOXAPARIN SODIUM 30 MG/0.3 ML SYRINGE SQ SCH (12:49)
[2017-04-09] MEDS: LEVOFLOXACIN 750 MG PREMIX INJ 150 ML IV SCH (12:49)
[2017-04-09] MEDS: NIFEdipine 20 MG CAP PO SCH ×2 (12:50→14:00)
--- NOTE | 2017-04-09 14:03 | HHI.FF ---
Face to Face Verification Diagnosis: (1) Physical deconditioning (2) Acute gallstone pancreatitis (3) Acute pancreatitis (4) RUQ pain Physical Therapy Order: Evaluate and Treat, Improve ambulation, Strength and gait training Home Health Nursing Order: Medical education Nursing assessment with vital signs I have seen patient Rodrick Saab on 04/09/17. My clinical findings support the need for the requested home health care services because: Deconditioned w/ increased weakness I certify that my clinical findings support that this patient is homebound because: Impaired cognitive ability/safety Unsteady gait/balance Humberto Sunshine Apr 09, 2017 14:03
[2017-04-09] MEDS ORDERED: METR1TAB76 PO (14:11)
[2017-04-09] MEDS ORDERED: LEVO750T3 PO (14:11)
[2017-04-09] MEDS ORDERED: METO50TA PO (14:11)
[2017-04-09] MEDS ORDERED: POTA1TAB4 PO (14:11)
[2017-04-09] MEDS ORDERED: LACTCHW3 CHEW (14:11)
[2017-04-09] MEDS ORDERED: HYDR-3516 PO (14:11)
--- NOTE | 2017-04-09 14:11 | HHI.DS ---
Discharge Summary Admission Date Apr 05, 2017 at 09:18 Discharge Date: Apr 09, 2017 Admitting Diagnosis acute pancreatitis (1) Acute gallstone pancreatitis ICD Code: K85.10 - Biliary acute pancreatitis without necrosis or infection Status: Acute (2) RUQ pain ICD Code: R10.11 - Right upper quadrant pain Status: Acute (3) Sepsis ICD Code: A41.9 - Sepsis, unspecified organism Procedures none Brief History - From Admission 71-year-old white male being admitted for severe pancreatitis. Patient was in his usual state of health until early this morning around 5 AM when he woke up in abdominal pain. The pain was cramping in nature and at worst was an 8/10 in intensity and was diffusely over his abdomen. He felt that this was possibly related to needing to void, but after having a bowel movement pain did not resolve and decided to proceed to the emergency room. He denies any nausea vomiting or diarrhea. Denies any alleviating or worsening factors of the abdominal pain. No fevers or chills. He reports having some blood noted on wiping but no bright red blood seen in the toilet on his last 2 bowel movements prior to admission; he does report that his last 2 bowel movements had relatively hard stool in comparison to normal stool that he usually has otherwise. Says he had occult stool cards done just about 2 months ago which were negative. CBC/BMP: 04/08/17 1151 04/09/17 0603 Significant Findings Laboratory Tests Test 04/07/17 07:27 04/08/17 06:15 04/08/17 11:07 04/08/17 11:51 White Blood Count 13.3 TH/MM3 (4.0-11.0) 12.9 TH/MM3 (4.0-11.0) 13.0 TH/MM3 (4.0-11.0) Platelet Count 111 TH/MM3 (150-450) 104 TH/MM3 (150-450) 116 TH/MM3 (150-450) Neutrophils (%) (Auto) 86.6 % (16.0-70.0) 84.7 % (16.0-70.0) 88.3 % (16.0-70.0) Lymphocytes (%) (Auto) 7.2 % (9.0-44.0) 8.3 % (9.0-44.0) 6.3 % (9.0-44.0) Neutrophils # (Auto) 11.5 TH/MM3 (1.8-7.7) 10.9 TH/MM3 (1.8-7.7) 11.6 TH/MM3 (1.8-7.7) Neutrophils % (Manual) 74 % (16-70) Band Neutrophils % 19 % (0-6) Lymphocytes % 3 % (9-44) Neutrophils # (Manual) 12.4 TH/MM3 (1.8-7.7) Platelet Estimate LOW (NORMAL) Random Glucose 112 MG/DL (74-106) 118 MG/DL (74-106) 136 MG/DL (74-106) Total Protein 5.8 GM/DL (6.4-8.2) 5.7 GM/DL (6.4-8.2) 5.9 GM/DL (6.4-8.2) Albumin 2.9 GM/DL (3.4-5.0) 2.6 GM/DL (3.4-5.0) 2.5 GM/DL (3.4-5.0) Calcium Level 7.7 MG/DL (8.5-10.1) 7.5 MG/DL (8.5-10.1) 7.7 MG/DL (8.5-10.1) Total Bilirubin 4.4 MG/DL (0.2-1.0) 3.9 MG/DL (0.2-1.0) 3.5 MG/DL (0.2-1.0) Potassium Level 3.0 MEQ/L (3.5-5.1) 3.0 MEQ/L (3.5-5.1) 2.9 MEQ/L (3.5-5.1) Lipase 1127 U/L (73-393) Red Blood Count 4.36 MIL/MM3 (4.50-5.90) Hematocrit 36.5 % (39.0-51.0) 38.6 % (39.0-51.0) Sodium Level 135 MEQ/L (136-145) 135 MEQ/L (136-145) Protein Corrected Calcium 8.2 MG/DL (8.5-10.1) Lymphocytes # (Auto) 0.8 TH/MM3 (1.0-4.8) Test 04/08/17 14:33 04/09/17 06:03 Direct Bilirubin 0.7 MG/DL (0.0-0.2) Gamma Glutamyl Transpeptidase 98 U/L (15-85) Random Glucose 130 MG/DL (74-106) Total Protein 5.5 GM/DL (6.4-8.2) Albumin 2.3 GM/DL (3.4-5.0) Calcium Level 7.5 MG/DL (8.5-10.1) Total Bilirubin 2.6 MG/DL (0.2-1.0) Potassium Level 2.8 MEQ/L (3.5-5.1) PE at Discharge Unlabored breathing, no acute distress Abdomen is soft, nontender today, no rebound Hospital Course Patient was admitted and started on IV fluids and pain control. His lipase has significantly improved drastically as well as his pain which was suggestive gallstone pain returns. General surgery was consulted and recommended an outpatient cholecystectomy. The patient's bilirubin however did rebound to a level of greater than 4, MRCP was performed which was negative for any choledocholithiasis. A neurology was consulted and recommended no further workup as his bilirubin remained stable and concluded that he would just take longer to heal. Patient did spike a fever while inpatient and had blood cultures drawn and was started on antibiotics for possible right lower lobe pneumonia versus bronchiolitis. His fevers resolved and his blood cultures remain negative. He was also found to be hypokalemic and this was replaced. Patient was tolerating by mouth intake well by time of discharge with no further setbacks. Patient was counseled to follow up with his PCP regarding repeating his potassium levels as well as a general surgery for an outpatient cholecystectomy. Patient has met maximal benefit from hospitalization and is clinically stable for discharge. Pt Condition on Discharge: Stable Discharge Disposition: Disch w/ Home Health Serv Discharge Time: <= 30 minutes Discharge Instructions Follow up Referrals: PCP Follow-up - 1 Week SNF/[facility] with [facility] - 1 Week with Rodrick Bishop MD New Orders: CBC WITH DIFF - 2-3 Days @ [facility] COMP MET PROF (CMP) - 2-3 Days @ [facility] New Medications: Lactobacillus Acidophilus (Lactinex) 1 Chew 1 TAB CHEW BID for Nutritional Supplement for 10 Days, #20 TAB 0 Refills Levofloxacin (Levofloxacin) 750 Mg Tablet 750 MG PO DAILY for Infection, #7 TAB 0 Refills Metoprolol Tartrate (Metoprolol Tartrate) 50 Mg Tab 50 MG PO BID for Blood Pressure Management, #60 TAB 0 Refills Metronidazole (Metronidazole) 500 Mg Tab 500 MG PO TID for Infection for 7 Days, TAB 0 Refills Potassium Chloride ER (K-Tab) 20 Meq Tab 40 MEQ PO DAILY for Electrolyte Replacement for 30 Days, #60 TAB 0 Refills Hydrocodone/Acetaminophen (Hydrocodone-Acetamin 5-325 mg) 5 Mg-325 Mg Tablet 1 TAB PO Q6H PRN for PAIN SCALE 5 TO 10, #10 TAB Continued Medications: Diazepam (Valium) 5 Mg Tab 5 MG PO TID PRN for muscle spasm, #15 TAB 0 Refills Lisinopril-Hctz (Lisinopril-Hctz) 20-25 Mg Tab 1 TAB PO DAILY for Blood Pressure Management, #30 TAB 0 Refills Discontinued Medications: Metoprolol Succinate ER 24 HR (Toprol XL) 50 Mg Tab 50 MG PO DAILY, #30 TAB 0 Refills Elder Palm MD Apr 09, 2017 14:10
--- NOTE | 2017-04-09 15:47 | HHI.PR ---
cc: Rodrick Bishop MD Subjective Subjective Notes DAILY PROGRESS NOTE FOR SURGICAL ATTENDING, DR. RODRICK BISHOP I'm ready to go home My pain is all gone Objective Vitals/I&O Vital Signs Date Time Temp Pulse Resp B/P (MAP) Pulse Ox O2 Delivery O2 Flow Rate FiO2 04/09/17 12:00 96.9 91 20 162/79 (106) 96 04/05/17 08:15 Room Air Labs Laboratory Tests Test 04/09/17 06:03 Blood Urea Nitrogen 9 Creatinine 0.70 Random Glucose 130 Total Protein 5.5 Albumin 2.3 Calcium Level 7.5 Alkaline Phosphatase 70 Aspartate Amino Transf (AST/SGOT) 17 Alanine Aminotransferase (ALT/SGPT) 28 Total Bilirubin 2.6 Sodium Level 136 Potassium Level 2.8 Chloride Level 102 Carbon Dioxide Level 24.2 Anion Gap 10 Estimat Glomerular Filtration Rate 111 Magnesium Level 1.9 Ammonia 28 Lipase 126 Date/Time Source Procedure Growth Status 04/07/17 09:45 Blood Peripheral Aerobic Blood Culture - Preliminary NO GROWTH IN 2 DAYS Resulted 04/07/17 09:45 Blood Peripheral Anaerobic Blood Culture - Preliminary NO GROWTH IN 2 DAYS Resulted 04/07/17 23:05 Urine Random Urine Legionella Antigen - Final PRESUMPTIVE NEGATIVE FOR LEGIONELLA P... Complete 04/07/17 23:05 Urine Random Urine Streptococcus pneumoniae Antigen (M - Final PRESUMPTIVE NEGATIVE FOR STREPTOCOCCU... Complete Radiology Last Impressions Cholangiopancreatography MRI 04/06/17 0000 Signed Impressions: Service Date/Time: March 15:10 - CONCLUSION: 1. Mild gallbladder wall thickening and pericholecystic fluid with evidence of cholelithiasis. Findings are characteristic of mild or low grade cholecystitis. 2. No evidence of significant biliary duct or common bile duct dilatation. 3. No evidence of filling defects within the common bile duct. 4. Acute pancreatitis without evidence of pseudocyst formation. 5. 2 cm hyperintense splenic lesion statistically most characteristic of a hemangioma. It is incompletely characterized without the use of contrast. Gabino Shelton MD Abdomen/Pelvis CT 04/05/17 0643 Signed Impressions: Service Date/Time: Wednesday, April 05, 2017 07:40 - CONCLUSION: 1. Peripancreatic inflammation diagnostic of acute pancreatitis. There is no pancreatic necrosis or acute pancreatitis associated complications. Additionally, no specific cause identified. There is mild gallbladder wall edema but no definite gallstones are present and there is no bile duct dilatation. 2. 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 The smaller stone measures 2 mm and the larger measures 7 x 5 mm. 3. Mild splenomegaly with enhancing lesion measuring 2.2 cm.. This lesion has nonspecific imaging features. Suggest correlating with prior imaging studies that could confirm longer-term stability. If none are available consider elective outpatient MRI with and without intravenous contrast to potentially offer additional characterization. Aly Whiting MD Gall Bladder Ultrasound 04/05/17 0000 Signed Impressions: Service Date/Time: Wednesday, April 05, 2017 10:08 - CONCLUSION: 1. Mild gallbladder wall thickening and trace pericholecystic fluid with small nonobstructing 6 mm adherent echogenic structure near the gallbladder neck likely reflecting adherent stone or polyp. These findings are nonspecific in this patient with acute pancreatitis although acute cholecystitis cannot be excluded particularly given the pericholecystic fluid. Consider HIDA scan to evaluate for cystic duct patency. 1. Naveed Cordoba MD Cardiovascular: Regular Lungs: Clear Abdomen: Non-tender, BS normal Extremities: Perfused, Other (walking in the room in street clothes) A/P Problem List: (1) Acute gallstone pancreatitis ICD Codes: K85.10 - Biliary acute pancreatitis without necrosis or infection Status: Acute (2) Acute pancreatitis ICD Codes: K85.90 - Acute pancreatitis without necrosis or infection, unspecified Status: Acute (3) Abnormal ultrasound ICD Codes: R93.8 - Abnormal findings on diagnostic imaging of other specified body structures Status: Acute (4) Abnormal findings on diagnostic imaging of liver and biliary tract ICD Codes: R93.2 - Abnormal findings on diagnostic imaging of liver and biliary tract Status: Acute (5) RUQ pain ICD Codes: R10.11 - Right upper quadrant pain Status: Acute (6) Elevated lipase ICD Codes: R74.8 - Abnormal levels of other serum enzymes Status: Acute (7) Elevated bilirubin ICD Codes: R17 - Unspecified jaundice Status: Acute Assessment and Plan 71-year-old gentleman with gallstone pancreatitis resolving. MRcp does not show any choledocholithiasis Okay to discharge home today Discussed with medical team We'll follow up with Dr. Damion Dawson early next week Allow pancreatitis to resolve and then proceed with cholecystectomy Attending Statement NOTE FOR SURGICAL ATTENDING, DR. RODRICK BISHOP I attest that I had a [id number] encounter with the patient on the same day, and personally performed and documented my assessment and findings in the medical record. The following services were provided during this hospital visit: Chart data review, vital sign assessments/reviewing monitor data Review of consultations notes if present. Medication orders/review and/or management Ordering and/or reviewing lab tests Ordering and/or interpreting/reviewing x-rays and/or diagnostic studies Care of the patient and discussion of the patient with the care team Documentation time To help prompt me to consider important information that might be impacting today's encounter and assessment, information from prior notes written by myself or my colleagues may have been "brought forward/copy and pasted" into today's note. Problem Qualifiers (1) Acute pancreatitis: Qualified Codes: K85.10 - Biliary acute pancreatitis without necrosis or infection Rodrick Bishop MD Apr 09, 2017 15:47
== END 2017-04-09 16:31 | disposition home or self-care (01) | DRG 439 ==
LOC: PHED 06:03 → PHEDA 09:18 → PH3B 10:04
PROVIDERS: ADMIT Hospitalist; ATTEND Hospitalist
DX: K85.90 Acute pancreatitis without necrosis or infection, unspecified (principal); K80.00 Calculus of gallbladder with acute cholecystitis without obstruction; I10 Essential (primary) hypertension; E87.6 Hypokalemia; K59.00 Constipation, unspecified; Z85.46 Personal history of malignant neoplasm of prostate; Z92.3 Personal history of irradiation; Z87.891 Personal history of nicotine dependence; Z87.442 Personal history of urinary calculi
CPT/HCPCS: 71020; 74177; 74181; 76377; 76705; 80053; 81001; 82140; 82247; 82248; 82977; 83690; 83735; 85007; 85025; 85027; 87040; 87449; 96360; J1650; J1956; J2060; J2270; J3480; J7030; Q9967